=== PATIENT | female | born 1935 | race Caucasian/White ===

== ENCOUNTER 2016-08-02 13:50 | Inpatient (IN) | payer MEDICARE, OTHER ==
[2016-08-02] VITALS (12 sets, daily range): BP systolic 110–151; BP diastolic 49–80
[~2016-08-02] VITALS: Ht 157.5 cm; Wt 83.9 kg
[~2016-08-02 13:50] MED LIST: ACET-868 PO; ATOR20TA PO; BLOO-697 IN; CLON0.5T4 PO; CLOP75TA2 PO; DIVA125T2 PO; HYDR-3326 PO; INSU100V3 SQ; INSU100V7 SQ; MAG30ORA PO; MAGN400O6 PO; MULT1TAB11 PO; ONDA4TAB5 PO; PANT40TA2 PO; POLY17PO4 PO; RISP0.2515 PO; SENN8.6T22 PO; VALS160T24 PO; VENL150C2 PO; ZOLP5TAB2 PO
[2016-08-02] MEDS ORDERED: clonazePAM 1 MG TABLET PO ONE (14:30)
[2016-08-02] MEDS ORDERED: clonazePAM 1 MG TABLET ONE (14:37)
[2016-08-02 14:41] LABS: BASOPHILS % (AUTO) 0.2 % (0.0-2.0); EOSINOPHILS # (AUTO) 0.3 /CMM (0.0-0.7); EOSINOPHILS % (AUTO) 2.4 % (0.0-6.0); HEMATOCRIT 35 % (33-45); HEMOGLOBIN 11.3 g/dL (11.5-14.8); LYMPHOCYTES # (AUTO) 5.1 /CMM (0.8-4.8); LYMPHOCYTES % (AUTO) 41.9 % (20.0-44.0); MEAN CORPUSCULAR HEMOGLOBIN 29 PG (26.0-33.0); MEAN CORPUSCULAR HGB CONC 33 g/dl (31.0-36.0); MEAN CORPUSCULAR VOLUME 90 fL (82-100); MONOCYTES # (AUTO) 0.6 /CMM (0.1-1.30); MONOCYTES % (AUTO) 5.1 % (2.0-12.0); NEUTROPHILS # (AUTO) 6.1 /CMM (1.8-8.9); NEUTROPHILS % (AUTO) 50.4 % (43.0-81.0); PLATELET COUNT (AUTO) 360 /CMM (150-450); RDW COEFFICIENT OF VARIATION 13.1 (11.5-15.0); RED BLOOD CELL COUNT(AUTO) 3.86 MIL/uL (4.0-5.2); WHITE BLOOD COUNT (AUTO) 12.1 K/uL (4.3-11.0)
[2016-08-02 14:51] LABS: MAGNESIUM 2.3 mg/dL (1.8-2.4)
[2016-08-02 14:57] LABS: ALBUMIN 3.4 g/dL (3.4-5.0); BILIRUBIN,TOTAL 0.1 mg/dL (0.2-1.0); CALCIUM, SERUM 10.1 mg/dL (8.5-10.1); CREATININE 1.6 mg/dL (0.6-1.3); TOTAL PROTEIN, SERUM 7.5 g/dL (6.4-8.2)
[2016-08-02 14:58] LABS: INR 0.99 (0.87-1.13); POTASSIUM 7.2 mmol/L (3.5-5.1); PROTHROMBIN TIME 10.3 SECS (9.5-12.7)
--- NOTE | 2016-08-02 15:07 | NUR ---
SENT FROM [facility] FOR HIGH POTASSIUM AND RIGHT HEEL WOUND. NAD NOTED. PT CONFUSED, FAMILY AT BEDSIDE. PLACED IN GOWN AND MONITOR. PENDING MD FOR EVAL.
--- NOTE | 2016-08-02 15:22 | NUR ---
DR OATES ON THE PHONE WITH DR JUANA DE LA ROSA
--- NOTE | 2016-08-02 15:25 | NUR ---
PAGED PIPE RACKER BUDGET ACCOUNTANT
[2016-08-02] MEDS ORDERED: INSULIN REGULAR, HUMAN 100 UNIT/ML 10 ML VIAL IV ONE (15:30)
[2016-08-02] MEDS ORDERED: INSULIN REGULAR, HUMAN 100 UNIT/ML 10 ML VIAL ONE (15:30)
[2016-08-02] MEDS ORDERED: SODIUM POLYSTYRENE SULFONATE 15 G/60 ML BOTTLE ONE (15:30)
[2016-08-02] MEDS ORDERED: SODIUM POLYSTYRENE SULFONATE 15 G/60 ML BOTTLE PO ONE ×2 (15:30→17:00)
[2016-08-02] MEDS ORDERED: DEXTROSE 50%-WATER 50 ML DISP.SYRIN IV ONE (15:30)
[2016-08-02] MEDS ORDERED: ALBUTEROL FS 2.5 MG/3 ML VIAL.NEB NEB ONE (15:30)
[2016-08-02] MEDS ORDERED: DEXTROSE 50%-WATER 50 ML DISP.SYRIN ONE (15:34)
[2016-08-02] MEDS ORDERED: ALBUTEROL FS 2.5 MG/3 ML VIAL.NEB ONE (15:50)
--- NOTE | 2016-08-02 16:00 | NUR ---
REPAGED DYE MAKER LABORER BEAM HOUSE DR AMBER HOYT.
--- NOTE | 2016-08-02 16:14 | NUR ---
PATIENT ASSIGNED TO ICU 262, ADMITTING PHYSICIAN IS DR. ESTRELLA ARIAS
[2016-08-02] MEDS ORDERED: IV NS 0.9% 1,000 ML IV PRN (16:16)
--- NOTE | 2016-08-02 16:22 | NUR ---
PATIENT'S HEART INCREASED TO 155 BPM AFTER 15 MINUTES OF ALBUTEROL TREATMENT THEN DECREASED BACK TO 80 BPM. NOTIFIED AND ASSESSED PATIENT AT BESIDE. PER MD ORDER PATIENT WAS KEPT ON TREATMENT. WILL CONTINUE TO MONITOR PATIENT.
[2016-08-02] MEDS ORDERED: Z GUARD REMEDY 2 OZ OINT TP PRN (16:30)
[2016-08-02] MEDS ORDERED: ACETAMINOPHEN 325 MG TABLET PO PRN (16:30)
[2016-08-02] MEDS ORDERED: MAG HYDROX/AL HYDROX/SIMETH 30 ML UDC PO PRN (16:30)
[2016-08-02] MEDS ORDERED: ONDANSETRON HCL/PF 4 MG/2 ML VIAL IVP PRN ×2 (16:30)
[2016-08-02] MEDS ORDERED: ASCO500T10 PO (16:33)
[2016-08-02] MEDS ORDERED: LUBI8CAP PO (16:33)
[2016-08-02] MEDS ORDERED: INSU100V11 SQ ×2 (16:33)
[2016-08-02] MEDS ORDERED: MINE133E RC (16:33)
[2016-08-02] MEDS ORDERED: VALS160T2 PO (16:33)
[2016-08-02] MEDS ORDERED: VENL75CA62 PO (16:33)
[2016-08-02] MEDS ORDERED: ACET325T53 PO (16:38)
[2016-08-02] MEDS ORDERED: METO-295 PO (16:38)
[2016-08-02] MEDS ORDERED: DEXT1CAP3 PO (16:38)
[2016-08-02] MEDS ORDERED: VANCOMYCIN 1 GM in IV D5W 250 ML IV ONE (17:00)
[2016-08-02 17:15] LABS: APPEARANCE,URINE Turbid (CLEAR); BILIRUBIN,URINE Negative (NEGATIVE); BLOOD, URINE Trace-intact Ery/uL (NEGATIVE); COLOR,URINE Yellow (YELLOW); KETONES,URINE Negative (NEGATIVE); LEUKOCYTE ESTERASE ,URINE Small (NEGATIVE); NITRITE, URINE Negative (NEGATIVE); PH,URINE 5.5 (5.0-8.0); PROTEIN,URINE 30 mg/dl (NEGATIVE); UROBILINOGEN,URINE 0.2 EU/dL (0.2)
[2016-08-02 17:16] LABS: UGLUCOSE 100 MG/DL mg/dL (NEGATIVE)
[2016-08-02 17:21] LABS: ADD URINE CULTURE YES; BACTERIA,URINE Few /HPF (None Seen); SQUAMOUS EPITHELIAL CELL,UR Few /HPF (None Seen); WBC,URINE 81-100 /HPF (0-3)
[2016-08-02] MEDS ORDERED: VANCOMYCIN 1 GM in IV D5W 250 ML IV SCH (17:30)
[2016-08-02] MEDS ORDERED: FEE PK DOSING 1 MIN EA MC ONE (17:49)
[2016-08-02 17:55] LABS: LACTIC ACID 2.3 mmol/L (0.4-2.0)
[2016-08-02] MEDS ORDERED: IV SET PRIMARY PUMP SET 1 EA INFUS.SET MC ONE ×3 (18:02→21:03)
[2016-08-02] MEDS: BLOOD SUGAR DIAGNOSTIC 1 EACH STRIP IN SCH ×2 (18:14→23:19)
--- NOTE | 2016-08-02 18:17 | NUR ---
ICU/RN - Notes Dr Hinojosa notified regarding pt's Lactic acid 2.3, with no new orders for fluids but to maintain IV NS @ 75ml/hr as ordered. Pt had an episode of emesis x1 of light brown color, likely due to Kayexelate given previously. Administered Zofran IVP as ordered, no aspiration noted. Pt noted to be diaphoretic with HR 120's. Dr Hinojosa made aware of assessment and pt unable to take dose of Kayexelate at this time. Per MD, do repeat BMP. Will carry out. Family at bedside.
[2016-08-02] MEDS: INSULIN REGULAR, HUMAN 100 UNIT/ML 3 ML VIAL SQ PRN ×2 (18:26→23:20)
[2016-08-02] MEDS ORDERED: METOCLOPRAMIDE HCL 10 MG TABLET PO PRN (18:30)
[2016-08-02] MEDS ORDERED: HYDROCODONE/APAP 5/325MG 1 EACH TABLET PO PRN (18:30)
[2016-08-02] MEDS ORDERED: PIPERACILLIN /TAZOBACTAM 2.25 G in IV D5W 50 ML IV SCH (18:55)
[2016-08-02 19:26] LABS: CALCIUM, SERUM 9.8 mg/dL (8.5-10.1); CREATININE 1.8 mg/dL (0.6-1.3)
[2016-08-02 19:31] LABS: POTASSIUM 6.8 mmol/L (3.5-5.1)
--- NOTE | 2016-08-02 19:40 | NUR ---
PICKER AND SORTER LOAD AND UNLOAD NOTES CALL RECEIVED FROM PT'S PRIMARY MD, DR MONTEMAYOR FROM [facility], REQUESTING STATUS UPDATES ON THE PATIENT AND ALSO REQUESTING TO GET A CALLBACK FROM THE ATTENDING MD IN THE MORNING. DR MONTEMAYOR'S CELLPHONE #: [phone].
[2016-08-02] MEDS ORDERED: SECONDARY IV SET 1 EA INFUS.SET MC ONE (19:50)
--- NOTE | 2016-08-02 20:00 | NUR ---
SALES MARKETING NOTES RECEIVED PT IN BED, A/O X1 WITH CONFUSION AND YELLING, VIETNAMESE SPEAKING ONLY. ON ROOM AIR, KT WELL. TELE READS ST AT 110 BPM. NO ACUTE DISTRESS OR PAIN NOTED. GALEANO CATH IN PLACE, DRAINING TO SLIGHTLY CLOUDY YELLOW URINE. RIGHT AND LEFT FOREARM 20G IV, RUNNING NS AT 75 ML/HR. RIGHT HEEL WOUND WITH ESCHAR, DRESSING INTACT. HOB ELEVATED, SIDE RAILS X3. CALL LIGHT WITHIN REACH.
[2016-08-02] MEDS ORDERED: MEROPENEM 1 G in IV NS 0.9% 100 ML IV SCH ×4 (21:00)
[2016-08-02] MEDS ORDERED: IV NS 0.9% 500 ML IV ONE (21:00)
[2016-08-02] MEDS ORDERED: SODIUM POLYSTYRENE SULFONATE 15 G/60 ML BOTTLE RC ONE (21:00)
--- NOTE | 2016-08-02 21:00 | NUR ---
LEAFLET DISTRIBUTOR NOTES PT VOMITED INITIAL DOSE OF KAYEXALATE. CONTACTED DNP FRANCY STRICKLAND AND MADE AWARE. NEW ORDER FOR KAYEXALATE ENEMA GIVEN. ALSO MADE AWARE OF LACTIC ACID INCREASE TO 2.8 AND LATEST POTASSIUM OF 6.8. NEW ORDER FOR NS 500 ML BOLUS GIVEN. PT'S DAUGHTER REQUESTING FOOD FOR PATIENT SHE STATES PT HAS NO SWALLOWING ISSUES AND WAS ON MECHANICAL SOFT DIET AT [facility]. ORDER RECEIVED FOR MECHANICAL SOFT RENAL/CONSISTENT CARB DIET WITH LOW POTASSIUM.
[2016-08-02] MEDS: PIPERACILLIN /TAZOBACTAM 2.25 G in IV D5W 50 ML IV SCH (21:10)
[2016-08-02] MEDS: ATORVASTATIN 10 MG TABLET PO SCH ×2 (21:25→22:00)
[2016-08-02] MEDS ORDERED: BLOOD SUGAR DIAGNOSTIC 1 EACH STRIP IN SCH (22:00)
[2016-08-02] MEDS: INSULIN DETEMIR 100 UNIT/ML CARTRIDGE SQ SCH (23:22)
--- NOTE | 2016-08-02 23:30 | NUR ---
BILINGUAL TEACHER ASSISTANT NOTES PT RECEIVED KAYEXALATE ENEMA AND HELD IT IN FOR APPROX 45 MIN. AFTERWARDS, HAD A SMALL/MODERATE BM WHICH CONSISTED MOSTLY OF KAYEXALATE.
[2016-08-03] VITALS (44 sets, daily range): BP systolic 97–158; BP diastolic 37–111
[2016-08-03] MEDS: PIPERACILLIN /TAZOBACTAM 2.25 G in IV D5W 50 ML IV SCH ×4 (01:01→20:40)
--- NOTE | 2016-08-03 03:19 | NUR ---
EXTRUSION TECHNICIAN NOTES PT IS ASLEEP WITH INTERMITTENT SLEEP PATTERN INTERRUPTED WITH OCCASIONAL SCREAMING AND THEN FALLING BACK ASLEEP. PT RECEIVED BED BATH AND LINEN CHANGE THROUGHOUT NIGHT.
[2016-08-03 05:16] LABS: BASOPHILS % (AUTO) 0.3 % (0.0-2.0); EOSINOPHILS # (AUTO) 0.1 /CMM (0.0-0.7); HEMATOCRIT 30 % (33-45); HEMOGLOBIN 9.8 g/dL (11.5-14.8); LYMPHOCYTES % (AUTO) 23.7 % (20.0-44.0); MEAN CORPUSCULAR HEMOGLOBIN 30 PG (26.0-33.0); MEAN CORPUSCULAR HGB CONC 33 g/dl (31.0-36.0); MEAN CORPUSCULAR VOLUME 90 fL (82-100); NEUTROPHILS # (AUTO) 8.5 /CMM (1.8-8.9); PLATELET COUNT (AUTO) 294 /CMM (150-450); RDW COEFFICIENT OF VARIATION 14.3 (11.5-15.0); RED BLOOD CELL COUNT(AUTO) 3.29 MIL/uL (4.0-5.2); RETICULOCYTE COUNT 1.3 % (0.6-2.5); WHITE BLOOD COUNT (AUTO) 12.6 K/uL (4.3-11.0)
[2016-08-03 05:47] LABS: PROTHROMBIN TIME 10.7 SECS (9.5-12.7)
[2016-08-03 05:54] LABS: ALBUMIN 3.1 g/dL (3.4-5.0); BILIRUBIN,DIRECT 0.1 mg/dL (0.0-0.2); BILIRUBIN,TOTAL 0.2 mg/dL (0.2-1.0); CALCIUM, SERUM 9.1 mg/dL (8.5-10.1); CREATININE 1.5 mg/dL (0.6-1.3); MAGNESIUM 2.1 mg/dL (1.8-2.4); THYROID STIMULATING HORMONE 1.789 uIU/mL (0.358-3.74); TOTAL PROTEIN, SERUM 6.8 g/dL (6.4-8.2)
[2016-08-03 06:06] LABS: POTASSIUM 7.5 mmol/L (3.5-5.1)
[2016-08-03] MEDS: SENNOSIDES 8.6 MG TABLET PO SCH ×2 (06:23→17:58)
[2016-08-03] MEDS: BLOOD SUGAR DIAGNOSTIC 1 EACH STRIP IN SCH ×3 (06:23→18:07)
--- NOTE | 2016-08-03 06:29 | NUR ---
HEAD OF INTEGRATED MEDIA NOTES PT REFUSED SENOKOT DOSE FOR 0700. PLACES PILLS IN MOUTH THEN SPITS THEM OUT.
[2016-08-03] MEDS ORDERED: SODIUM POLYSTYRENE SULFONATE 15 G/60 ML BOTTLE RC ONE (07:30)
--- NOTE | 2016-08-03 08:03 | NUR ---
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 PT COMBATIVE AT TIMES. RECOMMENDATIONS MADE FOR WOUND CARE AND SKIN PROTECTION. DISCUSSED WITH NURSING STAFF. FIRST STEP MATTRESS ORDERED. LEROY SCORE IS 12. DPM CONSULT MADE BY MD PER NURSING STAFF. WILL SEE PRN. AMBROSIO IN AGREEMENT WITH PLAN OF CARE. Addendum: 08/03/16 at 0806 by ADRIENNE ZULUAGA WNDNU Amended: Links added.
[2016-08-03] MEDS ORDERED: MAGNESIUM HYDROXIDE 30 ML UDC PO SCH (09:00)
[2016-08-03] MEDS: INSULIN DETEMIR 100 UNIT/ML CARTRIDGE SQ SCH ×2 (09:00→22:59)
[2016-08-03] MEDS ORDERED: ALBUTEROL FS 2.5 MG/3 ML VIAL.NEB NEB STA (09:35)
[2016-08-03] MEDS ORDERED: SODIUM BICARBONATE SYR 50 MEQ/50 ML DISP.SYRIN ONE (09:44)
[2016-08-03] MEDS: DIVALPROEX SODIUM 125 MG TABLET.DR PO SCH ×3 (09:59→17:58)
[2016-08-03] MEDS: CLOPIDOGREL BISULFATE 75 MG TABLET PO SCH (09:59)
[2016-08-03] MEDS: VENLAFAXINE XR 75 MG CAP.SR.24H PO SCH (09:59)
[2016-08-03] MEDS: ASCORBIC ACID 500 MG TABLET PO SCH (09:59)
[2016-08-03] MEDS: clonazePAM 0.5 MG TABLET PO SCH ×2 (09:59→17:58)
[2016-08-03] MEDS ORDERED: SODIUM BICARBONATE SYR 50 MEQ/50 ML DISP.SYRIN IV ONE ×2 (10:00→17:30)
[2016-08-03] MEDS ORDERED: DEXTROSE 50%-WATER 50 ML DISP.SYRIN IVP ONE ×2 (10:00→17:30)
[2016-08-03] MEDS ORDERED: INSULIN REGULAR, HUMAN 100 UNIT/ML 3 ML VIAL IV ONE ×2 (10:00→17:30)
[2016-08-03] MEDS: MULTIVIT, IRON, MIN NO. 8, FA 1 TAB TABLET PO SCH (10:00)
[2016-08-03] MEDS: CADEXOMER IODINE 40 GM TUBE TP SCH (10:02)
[2016-08-03] MEDS ORDERED: SECONDARY IV SET 1 EA INFUS.SET MC ONE ×2 (13:57→18:02)
[2016-08-03] MEDS: SOD FERRIC GLUC 125 MG in IV NS 0.9% 100 ML IV SCH (14:01)
--- NOTE | 2016-08-03 16:16 | NUR ---
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 Addendum: 08/03/16 at 1616 by RAHEL CRANE RN Amended: Links added.
[2016-08-03] MEDS: SODIUM POLYSTYRENE SULFONATE 15 G/60 ML BOTTLE PO ONE ×2 (17:30→18:08)
[2016-08-03] MEDS ORDERED: Calcium Gluconate 1GM/10ML 4.65 MEQ in IV D5W 50 ML IV ONE (17:30)
[2016-08-03 17:48] LABS: CALCIUM, SERUM 9.3 mg/dL (8.5-10.1); CREATININE 1.3 mg/dL (0.6-1.3)
[2016-08-03 17:55] LABS: POTASSIUM 6.4 mmol/L (3.5-5.1)
[2016-08-03] MEDS ORDERED: ALBUTEROL FS 2.5 MG/0.5 ML VIAL.NEB NEB SCH ×2 (18:00→18:15)
--- NOTE | 2016-08-03 18:43 | NUR ---
1800 VANCOMYCIN WILL BE GIVEN LATE. THE ORDER IS FOR 1.25 GM VANCO AND IN THE CASSETTE IS 1GM VANCO. CALLED PHARMACY, THEY STATE THEY WILL MIX IT AND BRING IT UP.
--- NOTE | 2016-08-03 19:12 | NUR ---
WRAPPER STEMMER OPERATOR PT IN BED AWAKE ALERT FAMILY AT BEDSIDE, ALL PT NEEDS MEET INTERVENTION INITIATED FOR ELEVATED K+ SEE MED CHART AND ORDERS, BMP SCHEDULED FOR 08/03/2016 @2200 FOR LABS AND CRITICAL LABS WILL BE REPORTED RACHEL MCDOWELL PM NURSE AWARE. NO CHANGES IN PT CONDITION FROM BASELINE ADVISED RN TO RECHECK BLOOD SUGAR IN 1HR.
[2016-08-03] MEDS: VANCOMYCIN 1.25 GM in IV D5W 500 ML IV SCH (19:46)
--- NOTE | 2016-08-03 20:00 | NUR ---
SPECIAL LIBRARIAN NOTES RECEIVED PT IN BED, A/O X1 WITH CONFUSION AND YELLING, WELSH SPEAKING ONLY. ON ROOM AIR, KT WELL. TELE READS SR AT 87 BPM. NO ACUTE DISTRESS OR PAIN NOTED. GALEANO CATH IN PLACE, DRAINING TO SLIGHTLY CLOUDY YELLOW URINE. RIGHT AND LEFT FOREARM 20G IV, RUNNING NS AT 100 ML/HR. RIGHT HEEL WOUND WITH ESCHAR, DRESSING INTACT. HOB ELEVATED, SIDE RAILS X3. CALL LIGHT WITHIN REACH. FAMILY AT BEDSIDE.
[2016-08-03] MEDS ORDERED: ALBUTEROL FS 2.5 MG/3 ML VIAL.NEB NEB ONE (20:30)
--- NOTE | 2016-08-03 21:00 | NUR ---
WEAVER NEEDLE LOOM NOTES SPOKE TO HOME SPECIALIST ABOUT 24 HR URINE COLLECTION. MADE AWARE THAT URINE WAS NOT PLACED ON ICE AND THEREFORE WILL NEED TO START A NEW 24 HR COLLECTION. WILL BEGIN COLLECTION ON 08/04/16 AT 0500.
[2016-08-03] MEDS: FLUDROCORTISONE 0.1 MG TABLET PO SCH (21:08)
[2016-08-03] MEDS: ZOLPIDEM TARTRATE 5 MG TABLET PO PRN (21:09)
[2016-08-03] MEDS: ATORVASTATIN 10 MG TABLET PO SCH (21:10)
[2016-08-03 22:04] LABS: CALCIUM, SERUM 8.9 mg/dL (8.5-10.1); CREATININE 1.2 mg/dL (0.6-1.3)
[2016-08-04] VITALS (23 sets, daily range): BP systolic 111–168; BP diastolic 44–96
[2016-08-04] MEDS: BLOOD SUGAR DIAGNOSTIC 1 EACH STRIP IN SCH ×5 (00:17→23:20)
[2016-08-04] MEDS: INSULIN REGULAR, HUMAN 100 UNIT/ML 3 ML VIAL SQ PRN ×3 (00:18→23:26)
[2016-08-04] MEDS: PIPERACILLIN /TAZOBACTAM 2.25 G in IV D5W 50 ML IV SCH ×3 (01:00→13:39)
[2016-08-04] MEDS: IV NS 0.9% 1,000 ML IV PRN ×2 (03:39→19:30)
[2016-08-04 05:27] LABS: BASOPHILS % (AUTO) 0.1 % (0.0-2.0); EOSINOPHILS # (AUTO) 0.2 /CMM (0.0-0.7); EOSINOPHILS % (AUTO) 1.9 % (0.0-6.0); HEMATOCRIT 26 % (33-45); HEMOGLOBIN 8.7 g/dL (11.5-14.8); LYMPHOCYTES # (AUTO) 3.2 /CMM (0.8-4.8); LYMPHOCYTES % (AUTO) 28.4 % (20.0-44.0); MEAN CORPUSCULAR HEMOGLOBIN 30 PG (26.0-33.0); MEAN CORPUSCULAR HGB CONC 33 g/dl (31.0-36.0); MEAN CORPUSCULAR VOLUME 90 fL (82-100); MONOCYTES # (AUTO) 0.9 /CMM (0.1-1.30); MONOCYTES % (AUTO) 8.3 % (2.0-12.0); NEUTROPHILS # (AUTO) 6.8 /CMM (1.8-8.9); NEUTROPHILS % (AUTO) 61.3 % (43.0-81.0); PLATELET COUNT (AUTO) 206 /CMM (150-450); RDW COEFFICIENT OF VARIATION 13.7 (11.5-15.0); RED BLOOD CELL COUNT(AUTO) 2.93 MIL/uL (4.0-5.2); WHITE BLOOD COUNT (AUTO) 11.1 K/uL (4.3-11.0)
[2016-08-04 05:35] LABS: CALCIUM, SERUM 8.8 mg/dL (8.5-10.1); CREATININE 1.1 mg/dL (0.6-1.3); MAGNESIUM 1.7 mg/dL (1.8-2.4); PHOSPHORUS 2.9 mg/dL (2.5-4.9); POTASSIUM 5.6 mmol/L (3.5-5.1)
--- NOTE | 2016-08-04 07:34 | NUR ---
EYEWEAR MANUFACTURING TECH RECEIVED PATIENT FROM THE PREVIOUS SHIFT. PATIENT IN BED. MODERATELY AGITATED AND RESTLESS. PERSISTENT YELLING WITHOUT PURPOSE NOTED. SINUS RHYTHM ON MONITOR. NORMAL BP. LEFT FORE ARM SKIN TEAR PHOTOGRAPHED AND FILED. IV FLUIDS RUNNING. REFUSES ANY PO INTAKE AT THIS TIME. HOB ELEVATED. FAMILY AWARE. WILL CONTINUE TO MONITOR AND PROVIDE CARE.
[2016-08-04] MEDS: INSULIN DETEMIR 100 UNIT/ML CARTRIDGE SQ SCH ×3 (08:44→23:34)
[2016-08-04] MEDS: CADEXOMER IODINE 40 GM TUBE TP SCH (08:44)
[2016-08-04] MEDS: clonazePAM 0.5 MG TABLET PO SCH ×2 (09:00→16:26)
[2016-08-04] MEDS: ASCORBIC ACID 500 MG TABLET PO SCH (09:46)
[2016-08-04] MEDS: VENLAFAXINE XR 75 MG CAP.SR.24H PO SCH (09:46)
[2016-08-04] MEDS: DIVALPROEX SODIUM 125 MG TABLET.DR PO SCH ×3 (09:46→16:27)
[2016-08-04] MEDS: MULTIVIT, IRON, MIN NO. 8, FA 1 TAB TABLET PO SCH (09:46)
[2016-08-04] MEDS: SENNOSIDES 8.6 MG TABLET PO SCH ×2 (09:46→16:27)
[2016-08-04] MEDS: FLUDROCORTISONE 0.1 MG TABLET PO SCH (09:46)
[2016-08-04] MEDS: CLOPIDOGREL BISULFATE 75 MG TABLET PO SCH (09:46)
[2016-08-04] MEDS ORDERED: SODIUM POLYSTYRENE SULFONATE 15 G/60 ML BOTTLE PO ONE (10:00)
[2016-08-04] MEDS ORDERED: SECONDARY IV SET 1 EA INFUS.SET MC ONE (10:40)
[2016-08-04] MEDS: Magnesium 1GM/D5W 100ML PREMIX 100 ML IV SCH ×2 (10:47→11:39)
--- NOTE | 2016-08-04 10:58 | NUR ---
DIE MAKER ELECTRONIC BUTCHER CHICKEN AND FISH ORDERED KAYEXALATE BY MOUTH FOR K LEVEL 5.6. RN INFORMED THE BUTCHER CHICKEN AND FISH THAT PATIENT'S PO INTAKE IS POOR AND UNABLE TO ADMINISTER THE FULL DOSE. BUTCHER CHICKEN AND FISH INFORMED THE RN TO ADMINISTER THE MEDICATION VIA AN ENEMA. RN INFORMED THE BUTCHER CHICKEN AND FISH THAT SHE HAD POOR RECTAL RETENTION OF THE ENEMA YESTERDAY AND CAUSED SEVERE AGITATION. BUTCHER CHICKEN AND FISH INFORMED THE RN TO ATTEMPT TO ADMINISTER THE MEDICATION BY MOUTH REGARDLESS. BUTCHER CHICKEN AND FISH ALSO INFORMED THAT SHE DOES NOT NEED ANY FOLLOW UP POTASSIUM LAB ORDERS FOR TODAY NOR INTRAVENOUS AGENTS TO TREAT HYPERKALEMIA. RN ATTEMPTED TO ADMINISTER THE MEDICATION BY MOUTH HOWEVER PATIENT ONLY TOOK ONE BOTTLE OF KAYEXALATE AT THIS TIME. RN CALLED THE FAMILY AND INFORMED ABOUT THE EVENT. PER DAUGHTER LUIGI, ANOTHER DAUGHTER OF THE PATIENT WILL BE HERE FOR LUNCH TO FEED THE PATIENT. PER LUGII PATIENT WOULD MOST LIKELY TAKE THE MEDICATION BY MOUTH IF ADMINISTERED WITH FAMILY'S ASSISTANCE. AWAITING FAMILY TO ARRIVE TO ADMINISTER THE MEDICATION WITH FAMILY'S ASSISTANCE. REST OF THE MEDICATION SAFELY PLACED ON PATIENT'S CASSETTE IN THE MEDICATION ROOM.
--- NOTE | 2016-08-04 13:21 | NUR ---
LATEX FASHIONS DESIGNER PATIENT DAUGHTER AT BEDSIDE. FAMILY HELPED THE RN FEED THE PATIENT. PATIENT TOOK ALL OF HER MEDICATIONS INCLUDING THE KAYEXALATE. NO FOLLOW POTASSIUM LEVEL FOR TODAY PER STATION ENGINEER.
[2016-08-04] MEDS: SOD FERRIC GLUC 125 MG in IV NS 0.9% 100 ML IV SCH (13:58)
--- NOTE | 2016-08-04 14:12 | NUR ---
REGIONAL ENVIRONMENTAL MANAGER PATIENT REFUSES BILATERAL LOWER EXTREMITY ARTERIAL DOPPLER AT THIS TIME. FAMILY IS AT BEDSIDE AND AWARE. PODIATRY SERVICES MADE AWARE.
[2016-08-04] MEDS: LACTOBACILLUS RHAMNOSUS GG 1 EACH CAP.SPRINK PO SCH (16:28)
[2016-08-04] MEDS ORDERED: LEVOFLOXACIN (500MG) 500 MG TABLET PO SCH (17:30)
[2016-08-04] MEDS: VANCOMYCIN 1.25 GM in IV D5W 500 ML IV SCH (17:45)
--- NOTE | 2016-08-04 18:50 | NUR ---
BOTTLED BEVERAGE INSPECTOR PATIENT IN BED. RESTING COMFORTABLY. NO DISTRESS. FAMILY AT BEDSIDE FEEDING THE PATIENT. WILL CONTINUE TO MONITOR AND PROVIDE CARE.
[2016-08-04] MEDS: LEVOFLOXACIN 500 MG /D5W 100ML 500 MG in PREMIX 1 EA IV SCH (20:29)
[2016-08-04] MEDS ORDERED: IV SET PRIMARY PUMP SET 1 EA INFUS.SET MC ONE (20:36)
--- NOTE | 2016-08-04 21:33 | NUR ---
DRIVEWAY SEALER INITIAL NOTE RECEIVED PT FROM ICU WITH FAMILY AT BEDSIDE. PT CAYMAN ISLANDER SPEAKING AND CONFUSED AT TIMES. ON 2L OF O2 VIA NC AND SATING WELL. GALEANO CATHETER IN PLACE AND DRAINING CLEAR YELLOW URINE BY GRAVITY. IV L FA CLEAN AND PATENT WITH FLUIDS INFUSING AND WELL TOLERATED. ALL SAFETY MEASURES IN PLACE. CALL LIGHT WITHIN EASY REACH AT ALL TIMES. WILL CONTINUE TO MONITOR.
--- NOTE | 2016-08-04 21:40 | NUR ---
ASSEMBLER GOLD FRAME - REC'D PT. IN RM#[id number], YELLING ALOUD & SPITTING ON RN WHEN ATTEMPTING TO DO ASSESS - MENT. ASSESSMENT DOCUMENTED. PT.IS ON O2/2.5L/NC. VSS. GALEANO CATH TO GRAVITY-24 HR.URINE CREAT/BUN/NA+ & EOS ARE IN PROGRESS. 24 HR. URINE TO BE FINISHED AT 5 AM. TX'D PT. TO RM #[id number]. PT'S 2 DAUGHTERS ARE AT BEDSIDE. FAMILY IS VERY INVOLVED W/PT'S CARE. PT.HAD VERY LARGE STOOL. 2 RN BEDBATH/VYMN-[id number]-GLELI & SKIN CARE ADM. CONT. POC.
[2016-08-04] MEDS: ZOLPIDEM TARTRATE 5 MG TABLET PO PRN (21:53)
[2016-08-04] MEDS: ATORVASTATIN 10 MG TABLET PO SCH (21:54)
[2016-08-04] MEDS: ACETAMINOPHEN 325 MG TABLET PO PRN (21:57)
[2016-08-05] VITALS: BP_SYST 142; BP_SYST 160; BP_DIAS 40; BP_DIAS 77
[2016-08-05] MEDS: HYDROCODONE/APAP 5/325MG 1 EACH TABLET PO PRN ×2 (02:50→20:14)
[2016-08-05 04:00] VITALS: BP 136/71
[2016-08-05] MEDS: BLOOD SUGAR DIAGNOSTIC 1 EACH STRIP IN SCH ×3 (06:14→17:08)
[2016-08-05] MEDS: SENNOSIDES 8.6 MG TABLET PO SCH ×3 (06:15→18:10)
[2016-08-05] MEDS: DEXTROSE 50%-WATER 50 ML DISP.SYRIN IV PRN (06:39)
--- NOTE | 2016-08-05 07:10 | NUR ---
RN INITIAL NOTES RECEIVED PT IN BED, ASLEEP, EASY TO AROUSE, PT IS CONFUSED AND COMBATIVE, PT IS ON PT IS ON 2L NC,SATING WELL, NO RESP. DISTRESS OR SOB NOTED AT THIS TIME, PT IS ON TELE MONITOR SHOWING SR @ 81 BPM, NO C/O OF PAIN OR DISTRESS NOTED, PT HAS F/C DRAINING WELL TO GRAVITY, PT HAS R WRIST, RUNNING NS @ 75ML/HR, C/D/I/PATENT, FLUSHING WELL, NO INFILTRATION/ INFECTION NOTED AT THIS TIME, PT IS NOTED WITH SKIN ISSUES, ALL SAFETY MEASURES IN PLACE AT ALL TIMES, CALL LIGHT WITHIN EASY REACH, WILL MONITOR PT CLOSELY
--- NOTE | 2016-08-05 07:21 | NUR ---
STUDENT MINISTRIES DIRECTOR CLOSING NOTE PT REMAINED STABLE DURING SHIFT WITH EPISODES OF YELLING AND CONFUSION. IV SITE INTACT AND FLUIDS WELL TOLERATED. GALEANO CATHETER IN PLACE. CALL LIGHT WITHIN REACH. WILL ENDORSE TO NEXT SHIFT FOR ZUHAIR.
[2016-08-05 07:35] LABS: CALCIUM, SERUM 8.8 mg/dL (8.5-10.1); POTASSIUM 3.3 mmol/L (3.5-5.1)
[2016-08-05 08:00] VITALS: BP 160/46
[2016-08-05] MEDS: DIVALPROEX SODIUM 125 MG TABLET.DR PO SCH ×3 (09:00→18:09)
[2016-08-05] MEDS: INSULIN DETEMIR 100 UNIT/ML CARTRIDGE SQ SCH ×2 (09:00→22:53)
[2016-08-05] MEDS: VENLAFAXINE XR 75 MG CAP.SR.24H PO SCH (09:00)
[2016-08-05] MEDS: CLOPIDOGREL BISULFATE 75 MG TABLET PO SCH (09:00)
[2016-08-05] MEDS: clonazePAM 0.5 MG TABLET PO SCH ×2 (09:00→18:10)
[2016-08-05] MEDS: ASCORBIC ACID 500 MG TABLET PO SCH (09:00)
[2016-08-05] MEDS: LACTOBACILLUS RHAMNOSUS GG 1 EACH CAP.SPRINK PO SCH ×2 (09:00→18:10)
[2016-08-05] MEDS: FLUDROCORTISONE 0.1 MG TABLET PO SCH (09:00)
[2016-08-05] MEDS: MULTIVIT, IRON, MIN NO. 8, FA 1 TAB TABLET PO SCH (09:00)
[2016-08-05] MEDS: CADEXOMER IODINE 40 GM TUBE TP SCH (09:25)
[2016-08-05] MEDS ORDERED: SECONDARY IV SET 1 EA INFUS.SET MC ONE ×2 (11:46→14:25)
[2016-08-05 12:00] VITALS: BP 140/56
[2016-08-05] MEDS ORDERED: POTASSIUM CHLORIDE 20 MEQ TAB.PRT.SR PO ONE (12:00)
[2016-08-05] MEDS: IV NS 0.9% 1,000 ML IV PRN (12:26)
[2016-08-05] MEDS: POTASSIUM CL. PREMIX PERIPHER. 50 ML IV SCH ×2 (12:26→15:49)
[2016-08-05] MEDS ORDERED: IV SET PRIMARY PUMP SET 1 EA INFUS.SET MC ONE (14:13)
[2016-08-05] MEDS: SOD FERRIC GLUC 125 MG in IV NS 0.9% 100 ML IV SCH (14:32)
[2016-08-05 16:00] VITALS: BP 158/50
[2016-08-05] MEDS: VANCOMYCIN 1.25 GM in IV D5W 500 ML IV SCH (16:38)
[2016-08-05] MEDS: INSULIN REGULAR, HUMAN 100 UNIT/ML 3 ML VIAL SQ PRN (18:11)
--- NOTE | 2016-08-05 18:31 | NUR ---
RN CLOSING NOTES PT REMAINED STABLE DURING SHIFT, ALL MEDICATIONS GIVEN, ALL MD ORDERS CARRIED OUT, ALL TREATMENTS COMPLETED, IV C/D/I/PATENT, RUNNING FLUIDS ORDERED, FAMILY AT BEDSIDE, ALL SAFETY MEASURES IN PLACE AT ALL TIMES, CALL LIGHT WITHIN EASY REACH, WILL GIVE REPORT TO PM RN FOR ZUHAIR
[2016-08-05] MEDS: LEVOFLOXACIN 500 MG /D5W 100ML 500 MG in PREMIX 1 EA IV SCH (19:49)
[2016-08-05 20:00] VITALS: BP_SYST 157; BP_SYST 177; BP_DIAS 60; BP_DIAS 82
[2016-08-05] MEDS: ZOLPIDEM TARTRATE 5 MG TABLET PO PRN (20:55)
--- NOTE | 2016-08-05 21:00 | NUR ---
TILE CONDUIT LAYER DF RECEIVED PT TO ROOM#105 PT WITH MULTIPLE FAMILY MEMBERS AT BEDSIDE. PT WITH HX OF DEMENTIA. PT DISORIENTED.ORIENTED PER PERSON PER FAMILY.PT IS KOSOVAN SPEAKING.TRANSLATION PROVIDED BY FAMILY MEMBERS. PT FOLLOWS SIMPLE COMMANDS. PT WITH UNCONTROLLED YELLING/SCREAMING (THIS IS PT,S BASELINE BEHAVIOR PER FAMILY). PT WILL FOLLOW COMMANDS AND SAY HI AND SPEAK WITH FAMILY MEMBERS AND PT YELLS/SCREAMS UNABLE TO STOP. PER FAMILY PT C/O PAIN TO RIGHT HEEL WOUND I MEDICATED PT WITH NORCO 1 TAB. PT C/O INSOMNIA UNABLE TO RELAX/SLEEP. PT MEDICATED WITH AMBIEN 5 MG PO. PT ON N/C AT 2LPM VSS. NAD NOTED.
[2016-08-05] MEDS: ATORVASTATIN 10 MG TABLET PO SCH (22:53)
--- NOTE | 2016-08-06 00:05 | NUR ---
RN DF PT ACCU CHECK AT 2250 OF 240. I COVERED PT WITH LEVIMIR 25 UNITS AND REGULAR INSULIN 4 UNTS PER RISS. PT AM CARE GIVEN BY LEIDY MAYNARD. I WILL RECHECK PT,S GLUCOSE IN 6 HOURS/PRN.
[2016-08-06] MEDS: BLOOD SUGAR DIAGNOSTIC 1 EACH STRIP IN SCH ×4 (00:08→18:25)
[2016-08-06] MEDS: INSULIN REGULAR, HUMAN 100 UNIT/ML 3 ML VIAL SQ PRN ×4 (00:09→18:33)
[2016-08-06 04:00] VITALS: BP_SYST 136; BP_SYST 166; BP_DIAS 57
[2016-08-06] MEDS: SENNOSIDES 8.6 MG TABLET PO SCH ×2 (06:12→14:38)
[2016-08-06 08:00] VITALS: BP 147/53
--- NOTE | 2016-08-06 08:00 | NUR ---
MS RN NOTE PATIENT IN BED, VERY RESTLESS, TRYING TO REMOVE O2 VIA NC WITH F\C TO GRAVITY WITH YELLOW COLOR URINE, PATIENT REFUSED TO HAVE BREAKFAST EXPLAINED OF RISK AND BENEFITS TO EAT STILL REFUSING , OFFERED X3 , NEW HL ON LT FOOT INSERTED WITH GOOD BLOOD RETURN NO COMPLICATION NOTED , BED IN LOWEST AND LOCKED POSITION CALL LIGHT WITHIN REACH WILL F\U
[2016-08-06 08:23] LABS: CALCIUM, SERUM 8.9 mg/dL (8.5-10.1); CREATININE 0.9 mg/dL (0.6-1.3); POTASSIUM 3.7 mmol/L (3.5-5.1)
[2016-08-06] MEDS: INSULIN DETEMIR 100 UNIT/ML CARTRIDGE SQ SCH ×2 (09:00→21:47)
[2016-08-06 10:00] VITALS: BP 147/53
--- NOTE | 2016-08-06 10:00 | NUR ---
ms rn note per dr vadim jaimes to inert hl on foot , new hl will be inserted on lt foot
[2016-08-06] MEDS: ASCORBIC ACID 500 MG TABLET PO SCH (10:11)
[2016-08-06] MEDS: MULTIVIT, IRON, MIN NO. 8, FA 1 TAB TABLET PO SCH (10:11)
[2016-08-06] MEDS: VENLAFAXINE XR 75 MG CAP.SR.24H PO SCH (10:11)
[2016-08-06] MEDS: LACTOBACILLUS RHAMNOSUS GG 1 EACH CAP.SPRINK PO SCH ×2 (10:11→18:24)
[2016-08-06] MEDS: clonazePAM 0.5 MG TABLET PO SCH ×2 (10:11→18:24)
[2016-08-06] MEDS: DIVALPROEX SODIUM 125 MG TABLET.DR PO SCH ×3 (10:12→17:00)
[2016-08-06] MEDS: CLOPIDOGREL BISULFATE 75 MG TABLET PO SCH (10:12)
[2016-08-06] MEDS: VANCOMYCIN 1.25 GM in IV D5W 500 ML IV SCH (10:12)
[2016-08-06] MEDS: FLUDROCORTISONE 0.1 MG TABLET PO SCH (10:13)
[2016-08-06] MEDS: CADEXOMER IODINE 40 GM TUBE TP SCH (10:13)
[2016-08-06] MEDS ORDERED: SECONDARY IV SET 1 EA INFUS.SET MC ONE (10:14)
--- NOTE | 2016-08-06 12:00 | NUR ---
MS RN NOTE ENDORSED CARE TORN FROM [facility]
[2016-08-06] MEDS: SOD FERRIC GLUC 125 MG in IV NS 0.9% 100 ML IV SCH (15:37)
[2016-08-06 16:00] VITALS: BP 138/43
[2016-08-06 16:39] VITALS: BP 138/43
--- NOTE | 2016-08-06 18:26 | NUR ---
PT [facility]
[2016-08-06 20:00] VITALS: BP 135/54
--- NOTE | 2016-08-06 20:00 | NUR ---
RN INITIAL NOTE; PT ON THE BED WITHOUT ANY DISTRESS , A/O x 1 ,CONFUSED ,SCREAMING SOMETIME DUE TO DEMENTIA, SWAZI SPEAKER. BREATHING EVEN AND UNLABORED ON 2 LPM VIA NC, FAMILY AT THE BED SITE , R WRIST 22G INTACT AND PATENT WITH CONTINUE NS @ 100 MLS/HR, PT ON PAIN, WILL GIVE PAIN MEDS, F/C INTACT AND DRAINING YELLOWISH URINE AND INCONTINENT TO BOWEL , BED IN THE LOWEST/LOCKED POSITION, WILL KEEP COMFORTABLE, CALL LIGHT WITHIN REACH. WILL CONTINUE TO MONITOR .
[2016-08-06] MEDS: LEVOFLOXACIN 500 MG /D5W 100ML 500 MG in PREMIX 1 EA IV SCH (20:11)
[2016-08-06] MEDS: HYDROCODONE/APAP 5/325MG 1 EACH TABLET PO PRN (20:19)
[2016-08-06] MEDS: ATORVASTATIN 10 MG TABLET PO SCH (21:21)
[2016-08-06] MEDS: ZOLPIDEM TARTRATE 5 MG TABLET PO PRN (21:52)
[2016-08-06] MEDS: IV NS 0.9% 1,000 ML IV PRN (22:57)
[2016-08-07] MEDS: INSULIN REGULAR, HUMAN 100 UNIT/ML 3 ML VIAL SQ PRN ×4 (00:23→23:18)
[2016-08-07] MEDS: BLOOD SUGAR DIAGNOSTIC 1 EACH STRIP IN SCH ×5 (00:38→23:20)
[2016-08-07] MEDS: VANCOMYCIN 1.25 GM in IV D5W 500 ML IV SCH ×2 (01:46→21:07)
[2016-08-07] MEDS ORDERED: SECONDARY IV SET 1 EA INFUS.SET MC ONE (03:31)
[2016-08-07 04:00] VITALS: BP 147/50
[2016-08-07] MEDS: SENNOSIDES 8.6 MG TABLET PO SCH ×2 (07:00→17:00)
--- NOTE | 2016-08-07 07:15 | NUR ---
RN MS INITIAL NOTES RECEIVED REPORT AND PT FROM PM NURSE, A&O X1 CONFUSED AND SCREAMING MANY TIMES, ON 2L BC SAT ABOVE 95% ,GALEANO CATH DRAINING URINE VIA GRAVITY, RT WRIST 22 G IV RUNNING NS @ 100 ML/HR INTACT AND PATENT NO S.S OF INFILTRATION NOTED, ALL NEEDS MET, ALL SAFETY MEASURES INITIATED, SIDE RAILS X2, BED LOW AND LOCKED, CALL LIGHT WITHIN REACH, WILL CONTINUE TO MONITOR.
--- NOTE | 2016-08-07 07:18 | NUR ---
RN EOS NOTE; PT REMAINED STABLE DURING THE SHIFT, SCREAMS SOMETIME , NO ANY DISTRESS NOTED DURING THE SHIFT. IV SITE INTACT AND PATENT WITH CONTINUE IVF , PRN NORCO AND AMBIEN GIVEN FOR PAIN AND INSOMNIA .BLOOD SUGAR CHECKED AND INSULIN GIVEN PER SLIDING SCALE , AM NURSE INDORSE TO CHECK BS CLOSELY , F/C INTACT AND DRAINING YELLOWISH URINE , REPOSITIONED Q2H , KEPT CLEAN AND DRY , ALL NEEDS ATTENDED PROMPTLY, NPO FOR SURGERY , CONSENT TAKEN , ENDORSE TO NEXT SHIFT FOR CONTINUITY OF CARE.
[2016-08-07 07:25] LABS: CALCIUM, SERUM 8.4 mg/dL (8.5-10.1); CREATININE 0.9 mg/dL (0.6-1.3); POTASSIUM 3.6 mmol/L (3.5-5.1)
[2016-08-07 08:00] VITALS: BP 165/57
[2016-08-07] MEDS: LACTOBACILLUS RHAMNOSUS GG 1 EACH CAP.SPRINK PO SCH ×2 (08:25→17:00)
[2016-08-07] MEDS: INSULIN DETEMIR 100 UNIT/ML CARTRIDGE SQ SCH ×2 (08:26→23:16)
[2016-08-07] MEDS: MULTIVIT, IRON, MIN NO. 8, FA 1 TAB TABLET PO SCH (08:26)
[2016-08-07] MEDS: FLUDROCORTISONE 0.1 MG TABLET PO SCH (08:26)
[2016-08-07] MEDS: VENLAFAXINE XR 75 MG CAP.SR.24H PO SCH (08:26)
[2016-08-07] MEDS: CLOPIDOGREL BISULFATE 75 MG TABLET PO SCH (08:26)
[2016-08-07] MEDS: ASCORBIC ACID 500 MG TABLET PO SCH (08:26)
[2016-08-07] MEDS: clonazePAM 0.5 MG TABLET PO SCH ×2 (08:26→17:00)
[2016-08-07] MEDS: DIVALPROEX SODIUM 125 MG TABLET.DR PO SCH ×3 (08:26→17:00)
[2016-08-07] MEDS: CADEXOMER IODINE 40 GM TUBE TP SCH (08:27)
--- NOTE | 2016-08-07 11:13 | NUR ---
RN MS NOTES PT LEFT FOR DEBRIDEMENT FOR OR, ALL CHECKLIST COMPLETED, PT STABLE FOR TRANSFER TO OR, SPOKE WITH FAMILY AND STATED OK FOR PROCEDURE.
[2016-08-07] MEDS ORDERED: LIDOCAINE HCL/PF 1% 30 ML SDV ONE (11:40)
--- NOTE | 2016-08-07 13:52 | NUR ---
RN MS NOTES PTS BG IS 45 MG/DL RECHECKED AND 48 MG/DL, PTS DAUGHTER LUIGI AT BEDSIDE AND REFUSES RN TO GIVE D5 VIA IV, MD DR ALDRIDGE NOTIFIED, WILL CONTINUE TO MONITOR, PTS FAMILY STATES PT IS EATING RIGHT NOW AND BG WILL RISE SOON, EDUCATION AND RISKS PROVIDED TO PT AND FAMILY, PT STILL REFUSES WELL FAMILY.
[2016-08-07] MEDS ORDERED: ANESTHESIA TRAY IN PYXIS 1 EA TRAY MC ONE (13:55)
[2016-08-07] MEDS: SOD FERRIC GLUC 125 MG in IV NS 0.9% 100 ML IV SCH (15:17)
--- NOTE | 2016-08-07 15:21 | NUR ---
RN MS NOTES RECHECKED BG AFTER PT ATE, NOW 90 MG.DL.
[2016-08-07] MEDS: ACETAMINOPHEN 325 MG TABLET PO PRN (15:34)
[2016-08-07 16:00] VITALS: BP 123/51
--- NOTE | 2016-08-07 18:50 | NUR ---
RN MS HILL NOTES PT STABLE, BED BATH PROVIDED, ALL NEEDS MET, PTS AT BEDSIDE AT THIS TIME, WILL ENDORSE TO PM NURSE.
[2016-08-07] MEDS: LEVOFLOXACIN 500 MG /D5W 100ML 500 MG in PREMIX 1 EA IV SCH (19:30)
[2016-08-07] MEDS: IV NS 0.9% 1,000 ML IV PRN (19:33)
[2016-08-07 20:00] VITALS: BP 155/55
--- NOTE | 2016-08-07 20:00 | NUR ---
RN INITIAL NOTE; PT ON THE BED RESTING CALM WITHOUT ANY DISTRESS , A/O x 1 ,CONFUSED , SLOVAK SPEAKER. BREATHING EVEN AND UNLABORED ON 2 LPM VIA NC, FAMILY AT THE BED SITE , KATTY MIDLINE INTACT AND PATENT WITH CONTINUE NS @ 100 MLS/HR, DENIED ANY PAIN AT THIS TIME, F/C INTACT AND DRAINING YELLOWISH URINE AND INCONTINENT TO BOWEL ,S/P WOUND DEBRIDEMENT AND WOUND VAC NEGATIVE PRESSURE WOUND THERAPY, DRESSING INTACT , BED IN THE LOWEST/LOCKED POSITION, WILL KEEP COMFORTABLE, CALL LIGHT WITHIN REACH. WILL CONTINUE TO MONITOR .
[2016-08-07] MEDS: MAGNESIUM HYDROXIDE 30 ML UDC PO PRN (20:34)
[2016-08-07] MEDS: ATORVASTATIN 10 MG TABLET PO SCH (21:11)
[2016-08-07] MEDS: ZOLPIDEM TARTRATE 5 MG TABLET PO PRN (21:11)
[2016-08-07] MEDS: MINERAL OIL 133 ML (PYXIS) 1 EA ENEMA RC PRN (22:09)
--- NOTE | 2016-08-07 23:30 | NUR ---
RN NOTE; MILK OF MAGNESIA AND FLEET MINERAL OIL ENEMA GIVEN PER FAMILY(daughter ) REQUEST , PT ABDOMEN IS SOFT , WILL CONTINUE TO MONITOR.
[2016-08-08 04:00] VITALS: BP 157/67
[2016-08-08] MEDS: INSULIN REGULAR, HUMAN 100 UNIT/ML 3 ML VIAL SQ PRN ×2 (05:18→18:11)
[2016-08-08] MEDS: BLOOD SUGAR DIAGNOSTIC 1 EACH STRIP IN SCH ×3 (05:19→18:12)
--- NOTE | 2016-08-08 06:53 | NUR ---
RN EOS NOTE; PT REMAINED STABLE DURING THE SHIFT, SCREAMS SOMETIME , NO ANY DISTRESS NOTED DURING THE SHIFT. IV FLUID AND ATB TOLERATED WELL. PRN AMBIEN GIVEN FOR INSOMNIA .BLOOD SUGAR CHECKED AND INSULIN GIVEN PER SLIDING SCALE , S/P WOUND DEBRIDEMENT AND WOUND VAC, NO OUTPUT. DENIED ANY PAIN . F/C INTACT AND DRAINING YELLOWISH URINE , VERY SMALL AMOUNT OF BM X 1. REPOSITIONED Q2H , KEPT CLEAN AND DRY , ALL NEEDS ATTENDED PROMPTLY, ENDORSE TO NEXT SHIFT FOR CONTINUITY OF CARE.
[2016-08-08 06:58] LABS: CALCIUM, SERUM 8.6 mg/dL (8.5-10.1); CREATININE 0.9 mg/dL (0.6-1.3); POTASSIUM 3.6 mmol/L (3.5-5.1)
[2016-08-08] MEDS: SENNOSIDES 8.6 MG TABLET PO SCH ×3 (07:00→19:10)
[2016-08-08 08:00] VITALS: BP 184/59
--- NOTE | 2016-08-08 08:00 | NUR ---
MS RN NOTE PATENT IN BED , ALL NEEDS ATTENDED ,WITH F\C TO GRAVITY WITH YELLOW COLOR URINE , RT FOOT WITH WOUND VAC NO DRAINAGE NOTED AT THIS TIME , RT UPPER ARM MID LINE IN PLACE ,NO S \S INFECTION NOTED , BED IN LOWEST AND LOCKED POSITION REFUSED BREAKFAST AND REFUSED TO TAKE L ALL HER MEDS, DR KELLY AWARE WILL F\U
[2016-08-08] MEDS: MULTIVIT, IRON, MIN NO. 8, FA 1 TAB TABLET PO SCH (09:00)
[2016-08-08] MEDS: CLOPIDOGREL BISULFATE 75 MG TABLET PO SCH (09:00)
[2016-08-08] MEDS: VENLAFAXINE XR 75 MG CAP.SR.24H PO SCH ×2 (09:00→11:04)
[2016-08-08] MEDS: INSULIN DETEMIR 100 UNIT/ML CARTRIDGE SQ SCH ×2 (09:00→21:41)
[2016-08-08] MEDS: LACTOBACILLUS RHAMNOSUS GG 1 EACH CAP.SPRINK PO SCH ×2 (09:00→18:10)
[2016-08-08] MEDS: clonazePAM 0.5 MG TABLET PO SCH ×2 (09:00→11:05)
[2016-08-08] MEDS: DIVALPROEX SODIUM 125 MG TABLET.DR PO SCH ×3 (09:00→18:10)
[2016-08-08] MEDS: ASCORBIC ACID 500 MG TABLET PO SCH (09:00)
--- NOTE | 2016-08-08 11:11 | NUR ---
MS RN NOTE SPOKE WITH DR KELLY NOTIFIED THAT REFUSED PO MEDS IN AM ALSO BP 185\59, STATED THAT OK WILL F\U
[2016-08-08] MEDS: IV NS 0.9% 1,000 ML IV PRN (12:28)
--- NOTE | 2016-08-08 12:35 | NUR ---
MS RN NOTE BLOOD SUGAR 91 MG\ DL NO COVERAGE WITH INSULIN, DAUGHTER AT BEDSIDE ,ABLE TO FEED PATENT
--- NOTE | 2016-08-08 13:21 | NUR ---
CHURN OPERATOR WOUND VAC ORDERS CLARIFIED WITH DPM REGARDING VAC DRESSING CHANGES TO BE DONE 3X WEEKLY AND PRN SOILING/LEAKAGE. VAC TO RUN CONTINUOUS SETTING AT 125MMHG.
[2016-08-08] MEDS: VANCOMYCIN 1.25 GM in IV D5W 500 ML IV SCH (15:33)
[2016-08-08 16:00] VITALS: BP 125/63
--- NOTE | 2016-08-08 16:24 | NUR ---
MS RN NOTE PATIENT YEILING AND SREAMING CALLED DR KELLY WITH ORDER OF ATIVAN 1MG X 1 DOSE ORDER CARRIED OUT.
[2016-08-08] MEDS ORDERED: LORAZEPAM INJ 2 MG/ML VIAL IV ONE (16:30)
--- NOTE | 2016-08-08 18:15 | NUR ---
PHYSICIAN PRACTICE MARKET MANAGER NOTE FAMILY AT BEDSIDE, ALL NEEDS ATTENDED, FEEDING DINER, NOT IN ACUTE DISTRESS
--- NOTE | 2016-08-08 19:30 | NUR ---
RN NOTES RECEIVED PT AWAKE ON BED AOX 1 VERY CONFUSED WITH AT BEDSIDE. PT HAS NO ACUTE RESP DISTRESS ON O2 4LPM VIA NC SATING 100%. BILATERAL BREATH SOUND CLEAR. IV SITE ON KATTY MIDLINE RUNNING WITH NS @ 100 CC/HR INTACT AND PATENT. WOUND VAC @ 125 MMHG ON RIGHT FOOT RUNNING . F/C DRAINED WITH YELLOW COLOR URINE VIA GRAVITY. OFFLOADED EXT WITH PILLOWS. REDUCED PRESSURE TO BONY PROMINENCE AREA. KEPT PT CLEAN AND COMFORTABLE IN BED. WILL CONTINUE TO MONITOR.
[2016-08-08 20:00] VITALS: BP 164/52
[2016-08-08] MEDS: LEVOFLOXACIN 500 MG /D5W 100ML 500 MG in PREMIX 1 EA IV SCH (20:33)
[2016-08-08] MEDS: ZOLPIDEM TARTRATE 5 MG TABLET PO PRN (20:34)
[2016-08-08] MEDS: ATORVASTATIN 10 MG TABLET PO SCH (21:35)
[2016-08-08] MEDS: HYDROCODONE/APAP 5/325MG 1 EACH TABLET PO PRN (21:42)
[2016-08-09] MEDS: BLOOD SUGAR DIAGNOSTIC 1 EACH STRIP IN SCH ×7 (00:17→21:05)
[2016-08-09] MEDS: INSULIN REGULAR, HUMAN 100 UNIT/ML 3 ML VIAL SQ PRN ×2 (00:20→21:08)
[2016-08-09] MEDS: IV NS 0.9% 1,000 ML IV PRN (03:50)
[2016-08-09 04:00] VITALS: BP_SYST 138; BP_SYST 140; BP_DIAS 35; BP_DIAS 55
[2016-08-09] MEDS: DEXTROSE 50%-WATER 50 ML DISP.SYRIN IV PRN ×2 (06:44→12:41)
--- NOTE | 2016-08-09 07:00 | NUR ---
RN NOTES PATIENT ASLEEP ON BED QUIET AT THIS TIME AND CALM RESPONSIVE TO VERBAL STIMULI. BS 37 MG/DL REPEAT TO RECHECKED BS = 38 MG/DL D50% GIVEN PRN ORDER. AND OFFERED AND GAVE SUGAR AND OJ. AFTER 15 MINUTES PT STARTED TO WAKE UP AND STARTED TO SCREAM AND YELLED NORMAL MENTAL STATUS. RECHECKED BS = 152 MG/DL INTERVENTION EFFECTIVE. ENDORSED CONTINUITY OF CARE TO AM NURSE.
--- NOTE | 2016-08-09 07:15 | NUR ---
RN INITIAL NOTE PT RECEIVED IN BED, SLEEPING. EASILY AROUSED. PT IS ABLE TO MAKE NEEDS KNOWN. REQUESTING PAIN MEDICATION. RESPIRATIONS ARE EVEN AND UNLABORED. SATING WELL ON 3L N/C. NO S/S OF RESPIRATORY DISTRESS OR SOB. GALEANO CATHETER DRAINING TO GRAVITY. IV SITE FLUSHED AND PATENT. DRESSING C/D/I. SKIN WARM AND DRY TO TOUCH. SAFETY MEASURES IMPLEMENTED. BED IN LOCKED LOW POSITION. CALL LIGHT AND BELONGINGS WITHIN EASY REACH. WILL CONTINUE TO MONITOR. Addendum: 08/09/16 at 1004 by CAMILA SZYMANSKI RN PT SPEAKS WELSH. HARD TO AROUSE. GAVE PAIN MEDICATION PRIOR TO CHANGING DRESSING ON RIGHT HEEL
[2016-08-09 07:19] LABS: BASOPHILS % (AUTO) 0.4 % (0.0-2.0); EOSINOPHILS # (AUTO) 0.3 /CMM (0.0-0.7); EOSINOPHILS % (AUTO) 2.7 % (0.0-6.0); HEMATOCRIT 26 % (33-45); HEMOGLOBIN 8.5 g/dL (11.5-14.8); LYMPHOCYTES # (AUTO) 3.2 /CMM (0.8-4.8); LYMPHOCYTES % (AUTO) 27.8 % (20.0-44.0); MEAN CORPUSCULAR HEMOGLOBIN 30 PG (26.0-33.0); MEAN CORPUSCULAR HGB CONC 33 g/dl (31.0-36.0); MEAN CORPUSCULAR VOLUME 89 fL (82-100); MONOCYTES # (AUTO) 1.1 /CMM (0.1-1.30); MONOCYTES % (AUTO) 9.6 % (2.0-12.0); NEUTROPHILS % (AUTO) 59.5 % (43.0-81.0); PLATELET COUNT (AUTO) 189 /CMM (150-450); RDW COEFFICIENT OF VARIATION 14.3 (11.5-15.0); WHITE BLOOD COUNT (AUTO) 11.7 K/uL (4.3-11.0)
[2016-08-09 08:00] VITALS: BP 174/83
[2016-08-09] MEDS: VANCOMYCIN 1.25 GM in IV D5W 500 ML IV SCH (08:00)
[2016-08-09 08:49] LABS: ALBUMIN 2.3 g/dL (3.4-5.0); BILIRUBIN,TOTAL 0.2 mg/dL (0.2-1.0); CALCIUM, SERUM 8.6 mg/dL (8.5-10.1); CREATININE 0.8 mg/dL (0.6-1.3); MAGNESIUM 1.3 mg/dL (1.8-2.4); PHOSPHORUS 1.8 mg/dL (2.5-4.9); POTASSIUM 3.8 mmol/L (3.5-5.1); TOTAL PROTEIN, SERUM 6.2 g/dL (6.4-8.2)
[2016-08-09] MEDS: INSULIN DETEMIR 100 UNIT/ML CARTRIDGE SQ SCH (09:00)
[2016-08-09] MEDS: clonazePAM 0.5 MG TABLET PO SCH (09:24)
[2016-08-09] MEDS: MULTIVIT, IRON, MIN NO. 8, FA 1 TAB TABLET PO SCH (09:24)
[2016-08-09] MEDS: CLOPIDOGREL BISULFATE 75 MG TABLET PO SCH (09:24)
[2016-08-09] MEDS: DIVALPROEX SODIUM 125 MG TABLET.DR PO SCH ×3 (09:24→17:00)
[2016-08-09] MEDS: ASCORBIC ACID 500 MG TABLET PO SCH (09:24)
[2016-08-09] MEDS: LACTOBACILLUS RHAMNOSUS GG 1 EACH CAP.SPRINK PO SCH ×2 (09:24→17:00)
[2016-08-09] MEDS: HYDROCODONE/APAP 5/325MG 1 EACH TABLET PO PRN (09:25)
--- NOTE | 2016-08-09 09:36 | NUR ---
RN NOTE HELP AC. TROUGH 24
[2016-08-09] MEDS: MAGNESIUM HYDROXIDE 30 ML UDC PO PRN (10:45)
[2016-08-09] MEDS ORDERED: IV D5/ 0.9% NACL 1,000 ML IV ONE (12:53)
[2016-08-09] MEDS: IV D5/ 0.9% NACL 1,000 ML IV PRN (12:58)
--- NOTE | 2016-08-09 12:59 | NUR ---
PT. BS DROPPED 35 ,PT. VERY SLEEPY MD NOTIFIED ,WILL HOLD INSULIN COVERAGE AND CHANGE IVF TO D5 NS PER MD ORDER.
[2016-08-09] MEDS ORDERED: INSULIN REGULAR, HUMAN 100 UNIT/ML 3 ML VIAL SQ PRN (13:00)
[2016-08-09] MEDS ORDERED: BLOOD SUGAR DIAGNOSTIC 1 EACH STRIP IN SCH (13:00)
[2016-08-09] MEDS ORDERED: DEXTROSE 50%-WATER 50 ML DISP.SYRIN IV PRN ×2 (13:00→21:00)
--- NOTE | 2016-08-09 13:53 | NUR ---
DR. CHARLES D/C KLONOPIN AND SLEEPING PILLS AND HOLD SEDATION FOR NOW ,WILL CONTINUE TO MONITOR,CLARIFIED FOR HEAD CT MD VERBALIZED NO AT THIS TIME.
[2016-08-09 14:11] VITALS: BP 124/54
[2016-08-09] MEDS ORDERED: K PHOS NEUTRAL 250 MG TABLET PO ONE (14:30)
--- NOTE | 2016-08-09 15:23 | NUR ---
RN NOTES PT'S MEDS HELD. UNAROUSABLE. MADE AWARE.
[2016-08-09 16:00] VITALS: BP 140/59
[2016-08-09] MEDS ORDERED: VANCOMYCIN 1 GM in IV D5W 250 ML IV SCH (18:00)
--- NOTE | 2016-08-09 19:09 | NUR ---
RN CLOSING NOTE PT RESTING IN BED COMFORTABLY. ALL MD ORDERS CARRIED OUT. PT KEPT CLEAN AND DRY. WILL GIVE REPORT TO PM NURSE FOR ZUHAIR.
--- NOTE | 2016-08-09 19:15 | NUR ---
RN NOTES RECEIVED PT ASLEEP ON BED, NO ACUTE RESP DISTRESS ON O2 4LPM VIA NC SATING 100%. DAUGHTER AT BEDSIDE CONCERNED REGARDING THE PATIENT STATUS AND DISCHARGE. PT REMOVING IT MOST OF THE TIME. BILATERAL BREATH SOUND CLEAR. IV SITE ON KATTY MIDLINE RUNNING WITH D5W @ 100 CC/HR INTACT AND PATENT. ON WOUND VAC @ 125 MMHG ON RIGHT FOOT . F/C DRAINED WITH YELLOW COLOR URINE VIA GRAVITY. OFFLOADED EXT WITH PILLOWS. REDUCED PRESSURE TO BONY PROMINENCE AREA. KEPT PT CLEAN AND COMFORTABLE IN BED. WILL CONTINUE TO MONITOR.
[2016-08-09 20:00] VITALS: BP 153/46
[2016-08-09] MEDS: ATORVASTATIN 10 MG TABLET PO SCH (20:16)
[2016-08-09] MEDS: LEVOFLOXACIN 500 MG /D5W 100ML 500 MG in PREMIX 1 EA IV SCH (20:16)
[2016-08-09] MEDS: SENNOSIDES 8.6 MG TABLET PO SCH (20:16)
[2016-08-09] MEDS: MINERAL OIL 133 ML (PYXIS) 1 EA ENEMA RC PRN (20:34)
[2016-08-10] VITALS: BP 132/60
[2016-08-10] MEDS: INSULIN REGULAR, HUMAN 100 UNIT/ML 3 ML VIAL SQ PRN ×5 (00:48→20:46)
[2016-08-10] MEDS: BLOOD SUGAR DIAGNOSTIC 1 EACH STRIP IN SCH ×6 (00:48→20:37)
[2016-08-10 04:00] VITALS: BP_SYST 150; BP_SYST 170; BP_DIAS 47; BP_DIAS 49
[2016-08-10] MEDS ORDERED: IV SET PRIMARY PUMP SET 1 EA INFUS.SET MC ONE (05:52)
[2016-08-10] MEDS: IV D5/ 0.9% NACL 1,000 ML IV PRN (06:00)
--- NOTE | 2016-08-10 07:00 | NUR ---
RN NOTES RECEIVED PT ASLEEP ON BED, NO ACUTE RESP DISTRESS ON O2 4LPM VIA NC SATING 100%. BILATERAL BREATH SOUND CLEAR. IV SITE ON KATTY MIDLINE RUNNING WITH D5W @ 100 CC/HR INTACT AND PATENT. ON WOUND VAC @ 125 MMHG ON RIGHT FOOT . F/C DRAINED WITH YELLOW COLOR URINE VIA GRAVITY. OFFLOADED EXT WITH PILLOWS. REDUCED PRESSURE TO BONY PROMINENCE AREA. KEPT PT CLEAN AND COMFORTABLE IN BED. WILL CONTINUE TO MONITOR.
[2016-08-10 07:09] LABS: CALCIUM, SERUM 8.5 mg/dL (8.5-10.1); CREATININE 0.8 mg/dL (0.6-1.3); POTASSIUM 3.9 mmol/L (3.5-5.1)
--- NOTE | 2016-08-10 07:15 | NUR ---
RN NOTES PT AWAKE AT THIS TIME WOKE UP SCREAMING AND YELLING , DENIES PAIN. AFEBRILE. NO SOB. O2 4LPM VIA NC TOLERATED WELL EVEN PT HAS AN EPISODE OF REMOVING THE OR BUT SATURATION REMAINED > 94%. WOUND VAC ONGOING. IVF ONGOING. KEPT PT CLEAN AND COFORTABLE IN BED. ENDORSED TO AM NURSE REGARDING THE FAMILY WANTS TO TAKL TO CULTURE MEDIA LABORATORY ASSISTANT AND .
[2016-08-10 08:00] VITALS: BP 139/52
[2016-08-10] MEDS: MULTIVIT, IRON, MIN NO. 8, FA 1 TAB TABLET PO SCH (09:52)
[2016-08-10] MEDS: CLOPIDOGREL BISULFATE 75 MG TABLET PO SCH (09:52)
[2016-08-10] MEDS: VENLAFAXINE XR 75 MG CAP.SR.24H PO SCH (09:52)
[2016-08-10] MEDS: ASCORBIC ACID 500 MG TABLET PO SCH (09:53)
[2016-08-10] MEDS: DIVALPROEX SODIUM 125 MG TABLET.DR PO SCH ×3 (09:53→16:29)
[2016-08-10] MEDS: LACTOBACILLUS RHAMNOSUS GG 1 EACH CAP.SPRINK PO SCH ×2 (09:53→16:29)
[2016-08-10 12:00] VITALS: BP 130/49
[2016-08-10 12:16] LABS: RENIN, PLASMA 1.153 ng/mL/hr (0.167-5.380)
[2016-08-10 13:16] LABS: RENIN, PLASMA 2.906 ng/mL/hr (0.167-5.380)
[2016-08-10 16:00] VITALS: BP 166/67
[2016-08-10] MEDS: SENNOSIDES 8.6 MG TABLET PO SCH (16:29)
[2016-08-10] MEDS ORDERED: K PHOS NEUTRAL 250 MG TABLET PO ONE (17:30)
[2016-08-10] MEDS: CEFTRIAXONE 1 G in IV D5W 50 ML IV SCH (17:40)
--- NOTE | 2016-08-10 19:45 | NUR ---
RN NOTES PT AWAKE ON BED WITH AND DAUGHTER AT BEDSIDE. NO ACUTE RESP DISTRESS. ON O2 4LPM VIA NC TOLERATED WELL. SATING 97%. PT IS AWAKE AOX 1 CONFUSED, YELLED AND SAYING NO WHEN ASKED QUESTION. IVF D5NS @ 100 CC/HR RUNNING WELL NO INFILTRATION OR REDNESS. WITH WOUND VAC ON RIGHT FOOT. F/C DRAINED WITH YELLOW COLOR URINE VIA GRAVITY. TURNED AND REPOSITIONED. OFFLOADED EXT WITH PILLOWS REDUCED PRESSURE TO BONY PROMINENCE AREA. KEPT PT CELAN AND DRY WILL CONTINUE TO MONITOR.
[2016-08-10 20:00] VITALS: BP 139/55
[2016-08-10] MEDS: ATORVASTATIN 10 MG TABLET PO SCH (20:30)
[2016-08-11] MEDS: INSULIN REGULAR, HUMAN 100 UNIT/ML 3 ML VIAL SQ PRN ×3 (01:30→21:06)
[2016-08-11] MEDS: BLOOD SUGAR DIAGNOSTIC 1 EACH STRIP IN SCH ×6 (01:33→21:01)
[2016-08-11 04:00] VITALS: BP 126/60
[2016-08-11 07:11] LABS: CALCIUM, SERUM 8.2 mg/dL (8.5-10.1); CREATININE 0.9 mg/dL (0.6-1.3); PHOSPHORUS 1.7 mg/dL (2.5-4.9)
--- NOTE | 2016-08-11 07:27 | NUR ---
RN NOTES PT ASLEEP ABOUT 4 HOURS TODAY, NO BOWEL, NOTED WITH SLIGHT FEVER OF 99.8 COOL MEASURES RENDERED AFTER 30 MINUTES RECHECKED TEMP 98.9. FAMILY AWARE. ENDORSED TO NEXT SHIFT FOR CONTINUITY OF CARE.
[2016-08-11 08:00] VITALS: BP 121/44
--- NOTE | 2016-08-11 08:47 | NUR ---
WOUND CARE FOLLOW UP/VAC DRESSING CHANGE: PT SEEN FOR VAC DSG CHANGE. DR WARREN IN TO EXAMINE HEEL WOUND. RED GRANULATION TISSUE NOTED WITH SOME YELLOW SLOUGH, SCANT PINK/BROWN DRAINAGE NOTED. SKIN PREP AND VAC DRAPE USED FOR PERIWOUND AREAS, GRANUFOAM TO WOUND, BRIDGING TECHNIQUE USED. VAC AT 125mmHg CONTINUOUS SETTING. ONLY 25cc RED/BROWNISH DRAINAGE IN CANISTER. PT TOLERATED WELL. CONTINUE ALL SKIN PROTECTION MEASURES. DISCUSSED WITH NURSING STAFF. IN AGREEMENT WITH PLAN OF CARE.
[2016-08-11] MEDS: VENLAFAXINE XR 75 MG CAP.SR.24H PO SCH (09:13)
[2016-08-11] MEDS: CLOPIDOGREL BISULFATE 75 MG TABLET PO SCH (09:13)
[2016-08-11] MEDS: SENNOSIDES 8.6 MG TABLET PO SCH ×2 (09:13→16:59)
[2016-08-11] MEDS: LACTOBACILLUS RHAMNOSUS GG 1 EACH CAP.SPRINK PO SCH ×2 (09:13→16:59)
[2016-08-11] MEDS: DIVALPROEX SODIUM 125 MG TABLET.DR PO SCH ×3 (09:13→16:58)
[2016-08-11] MEDS: ASCORBIC ACID 500 MG TABLET PO SCH (09:13)
[2016-08-11 09:26] LABS: ALDOSTERONE 1.6 ng/dL (0.0-30.0)
[2016-08-11 09:26] LABS: ALDOSTERONE <1.0 ng/dL (0.0-30.0)
[2016-08-11] MEDS: MULTIVIT, IRON, MIN NO. 8, FA 1 TAB TABLET PO SCH (09:59)
[2016-08-11 12:00] VITALS: BP 116/75
[2016-08-11] MEDS ORDERED: K PHOS NEUTRAL 250 MG TABLET PO ONE (14:00)
[2016-08-11] MEDS ORDERED: FUROSEMIDE 40 MG/4 ML VIAL IV ONE (14:00)
[2016-08-11] MEDS: ACETAMINOPHEN 325 MG TABLET PO PRN (15:59)
[2016-08-11 16:00] VITALS: BP 119/53
[2016-08-11] MEDS: CEFTRIAXONE 1 G in IV D5W 50 ML IV SCH (16:58)
[2016-08-11] MEDS ORDERED: FEE PK DOSING 1 MIN EA MC ONE (18:12)
[2016-08-11] MEDS ORDERED: IV NS 0.9% 250 ML IV ONE (18:46)
[2016-08-11 20:00] VITALS: BP 137/50
[2016-08-11] MEDS: ATORVASTATIN 10 MG TABLET PO SCH (20:43)
[2016-08-11] MEDS: PIPERACILLIN /TAZOBACTAM 3.375 G in IV D5W 50 ML IV SCH (20:50)
[2016-08-11] MEDS: MAGNESIUM HYDROXIDE 30 ML UDC PO PRN (20:55)
[2016-08-11] MEDS: VANCOMYCIN 0.75 GM in IV D5W 250 ML IV SCH (21:10)
[2016-08-12] MEDS: BLOOD SUGAR DIAGNOSTIC 1 EACH STRIP IN SCH ×6 (01:10→21:10)
[2016-08-12] MEDS: INSULIN REGULAR, HUMAN 100 UNIT/ML 3 ML VIAL SQ PRN ×5 (01:22→21:06)
[2016-08-12] MEDS: PIPERACILLIN /TAZOBACTAM 3.375 G in IV D5W 50 ML IV SCH ×4 (01:26→18:04)
[2016-08-12 04:00] VITALS: BP 168/70
[2016-08-12] MEDS: SENNOSIDES 8.6 MG TABLET PO SCH ×2 (06:34→16:53)
[2016-08-12] MEDS: VANCOMYCIN 0.75 GM in IV D5W 250 ML IV SCH ×2 (07:07→18:07)
--- NOTE | 2016-08-12 07:18 | NUR ---
RN INITIAL NOTES: Rec'd pt awake on bed w/ HOB elevated. Pt on O2 at 4lpm/NC, noted wheezes on both lungs upon auscultation, RR 22, saturating at 97%. Pt has KATTY midline, patent & intact w/ no signs of infection/ infiltration noted. Has FC patent & intact draining to adequate urine output. Has R heel wound covered w/ dry & intact dressing w/ wound vac at 125 mmHg. Call light placed w/in reach. Bed kept low & in locked position. Will continue to monitor.
[2016-08-12] MEDS ORDERED: FUROSEMIDE 40 MG/4 ML VIAL IV SCH ×2 (07:30→17:00)
[2016-08-12] MEDS ORDERED: FUROSEMIDE 40 MG/4 ML VIAL IV ONE ×4 (07:30→17:00)
--- NOTE | 2016-08-12 07:44 | NUR ---
PT BLOOD GLUSOE OVERNIGHT WAS ELEVATED ,PER DAUGHTER PT HAD CHOCOLATE CAKE DUE TO PT'S BIRTHDAY,INSULIN COVERAGE GIVEN.MIDLINE DRAWS WELL,ALL LABS DRAWN, CONTINUE WITH ANTIBIOTICS,VSS,AFEBRILE ,WOUND VAC HAS NO OUTPIT OVERNIGHT ,DRESSING INTACT,NO BM OVERNIGHT DESPITE MOM GIVEN,WILL GIVE ENEMA TODAY ORDERED.PT DIDM'T SLEEP ALL NIGHT KEPT SCREAMING.OTHERWISE CONTINUE TO MONITOR.
[2016-08-12 07:45] LABS: CALCIUM, SERUM 8.2 mg/dL (8.5-10.1); CREATININE 1.1 mg/dL (0.6-1.3); POTASSIUM 3.5 mmol/L (3.5-5.1)
[2016-08-12 08:00] VITALS: BP 119/37
--- NOTE | 2016-08-12 09:00 | NUR ---
RN NOTES: As per Dr. Min, give 1 dose of 40 mg Lasix only then will give another one at 5pm.
[2016-08-12] MEDS: ASCORBIC ACID 500 MG TABLET PO SCH (09:17)
[2016-08-12] MEDS: DIVALPROEX SODIUM 125 MG TABLET.DR PO SCH ×3 (09:17→16:53)
[2016-08-12] MEDS: VENLAFAXINE XR 75 MG CAP.SR.24H PO SCH (09:17)
[2016-08-12] MEDS: CLOPIDOGREL BISULFATE 75 MG TABLET PO SCH (09:17)
[2016-08-12] MEDS: LACTOBACILLUS RHAMNOSUS GG 1 EACH CAP.SPRINK PO SCH ×2 (09:17→16:58)
[2016-08-12] MEDS: MULTIVIT, IRON, MIN NO. 8, FA 1 TAB TABLET PO SCH (09:21)
--- NOTE | 2016-08-12 10:10 | NUR ---
DR. KELLY HOLD D/C R/T PROGRESSIVE CONGESTION PER CXR WILL REPEAT LASIX AT 5 PM.CM MADE AWARE.
--- NOTE | 2016-08-12 10:30 | NUR ---
RN NOTES: PT evaluation was done. Family at bedside.
--- NOTE | 2016-08-12 11:19 | NUR ---
RN NOTES: Pt seen & examined by Dr. Wilde.
--- NOTE | 2016-08-12 11:45 | NUR ---
RN NOTES: As per Dr. Wilde, taper down O2 from 4lpm to 2lpm then off, keep O2 sat >92%. Family made aware.
[2016-08-12] MEDS: POLYETHYLENE GLYCOL 3350 17 GM POWD.PACK PO SCH ×2 (12:57→20:58)
[2016-08-12] MEDS: BISACODYL SUPP (10 MG) 10 MG/SUPP.RECT SUPP.RECT RC PRN (12:57)
[2016-08-12] MEDS ORDERED: SECONDARY IV SET 1 EA INFUS.SET MC ONE (12:59)
--- NOTE | 2016-08-12 13:00 | NUR ---
RN NOTES: Accucheck 138 mg/dL, no insulin given. Pt offered lunch but refused. Family made aware, said that they'll come back to feed pt.
[2016-08-12 16:00] VITALS: BP 152/48
[2016-08-12] MEDS ORDERED: ACETAMINOPHEN 650 MG/SUPP.RECT RC PRN (17:30)
--- NOTE | 2016-08-12 18:00 | NUR ---
RN NOTES: Temp checked 100.1, Tylenol suppository given. Pt refused oral Tylenol.
--- NOTE | 2016-08-12 18:50 | NUR ---
RN NOTES: Temp rechecked, 99.1.
--- NOTE | 2016-08-12 18:50 | NUR ---
RN CLOSING NOTES: No acute changes noted w/in shift. Able to titrate down O2 to 2lpm / NC, O2 sats kept >92%. Tried on room air but sats goes down to 90%. Pt still noted w/ wheezes on both lungs upon auscultation. KATTY midline kept patent & intact w/ no signs of infection/ infiltration noted. FC kept patent & intact draining to adequate urine output. R heel wound kept dry & intact dressing w/ wound vac at 125 mmHg, no drainage noted. Pt had small bowel movement. Call light placed w/in reach. Bed kept low & in locked position. Will endorse to PM RN for ZUHAIR.
[2016-08-12 20:00] VITALS: BP 137/41
[2016-08-12] MEDS: ATORVASTATIN 10 MG TABLET PO SCH (20:58)
[2016-08-13] VITALS (7 sets, daily range): BP systolic 113–138; BP diastolic 49–92
[2016-08-13] MEDS: PIPERACILLIN /TAZOBACTAM 3.375 G in IV D5W 50 ML IV SCH ×4 (00:56→19:35)
[2016-08-13] MEDS: BLOOD SUGAR DIAGNOSTIC 1 EACH STRIP IN SCH ×6 (01:01→21:27)
[2016-08-13] MEDS: INSULIN REGULAR, HUMAN 100 UNIT/ML 3 ML VIAL SQ PRN ×6 (01:04→21:43)
--- NOTE | 2016-08-13 05:30 | NUR ---
RECEIVED PATIENT FROM [place]. ALERT AND ORIENTED X1, ENGLISH SPEAKING, UNABLE TO SPEAK SAMI, YELLING. NO SOB, NO RESPIRATORY DISTRESS, ON 2LPM VIA NC, 02 SAT 96%, ABDOMEN IS FIRMED, ACTIVE BOWEL SOUNDS, RIGHT UPPER ARM MIDLINE IS PATENT, RIGHT HEEL WOUND VAC ON CONTINUOUS SETTING AT 125 mmHG, NO OUTPUT AT THIS TIME, GALEANO CATHETER IS DRAINING WELL WITH YELLOW URINE. BILATERAL EXTREMITIES OFFLOADED, KEPT SAFE AND COMFORTABLE, CALL LIGHT WITHIN REACH.
--- NOTE | 2016-08-13 05:30 | NUR ---
RN NOTES: PATIENT IS TRANSFERRED TO [facility] [place] [facility] [place], NO DISTRESS NOTED. NO COMPLAINS OF PAIN.
--- NOTE | 2016-08-13 05:53 | NUR ---
INSULIN HELD, BG 117 MG/DL
--- NOTE | 2016-08-13 06:30 | NUR ---
PATIENT IN BED, ALERT AND AWAKE, SPITTING AT TIMES, SCREAMS, REFUSE SENNA PO, SPITTING MEDICATION. RT UPPER ARM MIDLINE IS PATENT AND INFUSING WELL. GALEANO CATHETER DRAINING WELL WITH YELLOW URINE, WOUND VAC TO RIGHT HEEL IS IN GOOD WORKING CONDITION, NO OUTPUT AT THIS TIME. AWAITING VANCO TROUGH. KEPT SAFE AND COMFORTABLE, CALL LIGHT WITHIN REACH.
[2016-08-13] MEDS: SENNOSIDES 8.6 MG TABLET PO SCH ×2 (06:33→18:54)
[2016-08-13] MEDS: VANCOMYCIN 0.75 GM in IV D5W 250 ML IV SCH (07:00)
--- NOTE | 2016-08-13 07:15 | NUR ---
MS RN NOTES RECEIVED PATIENT IN BED, AWAKE. ON OXYGEN AT 2L/MIN VIA NC, NO SOB NOTED. APPEARS CONFUSED, INTERMITTENT SCREAMING BEHAVIOR. CLEAN AND DRY, HOB ELEVATED. KATTY MIDLINE PATENT AND INTACT, FLUSHES WELL. WOUND RIGHT HEEL, WOUND VAC IN PLACE WITH NO FLUID DRAINAGE IN THE WOUND CANISTER. CALL LIGHT WITHIN REACH, BED LOW AND LOCKED. WILL CONT TO MONITOR.
[2016-08-13 08:10] LABS: BASOPHILS % (AUTO) 0.3 % (0.0-2.0); EOSINOPHILS # (AUTO) 0.3 /CMM (0.0-0.7); EOSINOPHILS % (AUTO) 3.7 % (0.0-6.0); HEMATOCRIT 26 % (33-45); HEMOGLOBIN 8.4 g/dL (11.5-14.8); LYMPHOCYTES # (AUTO) 2.3 /CMM (0.8-4.8); LYMPHOCYTES % (AUTO) 26.6 % (20.0-44.0); MEAN CORPUSCULAR HEMOGLOBIN 29 PG (26.0-33.0); MEAN CORPUSCULAR HGB CONC 33 g/dl (31.0-36.0); MEAN CORPUSCULAR VOLUME 89 fL (82-100); MONOCYTES # (AUTO) 0.8 /CMM (0.1-1.30); MONOCYTES % (AUTO) 9.2 % (2.0-12.0); NEUTROPHILS # (AUTO) 5.3 /CMM (1.8-8.9); NEUTROPHILS % (AUTO) 60.2 % (43.0-81.0); PLATELET COUNT (AUTO) 165 /CMM (150-450); RDW COEFFICIENT OF VARIATION 14.1 (11.5-15.0); RED BLOOD CELL COUNT(AUTO) 2.92 MIL/uL (4.0-5.2); WHITE BLOOD COUNT (AUTO) 8.8 K/uL (4.3-11.0)
[2016-08-13] MEDS: LACTOBACILLUS RHAMNOSUS GG 1 EACH CAP.SPRINK PO SCH ×2 (09:00→18:54)
[2016-08-13] MEDS: ASCORBIC ACID 500 MG TABLET PO SCH (09:00)
[2016-08-13] MEDS: MULTIVIT, IRON, MIN NO. 8, FA 1 TAB TABLET PO SCH (09:00)
[2016-08-13] MEDS: VENLAFAXINE XR 75 MG CAP.SR.24H PO SCH (09:00)
[2016-08-13] MEDS: DIVALPROEX SODIUM 125 MG TABLET.DR PO SCH ×3 (09:00→18:54)
[2016-08-13] MEDS: CLOPIDOGREL BISULFATE 75 MG TABLET PO SCH (09:00)
--- NOTE | 2016-08-13 09:21 | NUR ---
BS 154 MG/DL. GIVEN 2 UNITS INSULIN REGULAR SQ PER [employer] COVERAGE. AM MEDS NON ADMINISTERED, PATIENT REFUSED AND SPIT OUT SOME OF THE MEDICATIONS.
[2016-08-13] MEDS ORDERED: FUROSEMIDE 40 MG/4 ML VIAL IV ONE (10:00)
[2016-08-13 10:09] LABS: CALCIUM, SERUM 8.4 mg/dL (8.5-10.1); PHOSPHORUS 2.8 mg/dL (2.5-4.9); POTASSIUM 3.1 mmol/L (3.5-5.1)
[2016-08-13 10:25] LABS: MAGNESIUM 1.2 mg/dL (1.8-2.4)
[2016-08-13] MEDS ORDERED: SECONDARY IV SET 1 EA INFUS.SET MC ONE (11:30)
[2016-08-13] MEDS ORDERED: POTASSIUM CHLORIDE 20 MEQ TAB.PRT.SR PO SCH (11:30)
[2016-08-13] MEDS: Magnesium 1GM/D5W 100ML PREMIX 100 ML IV SCH ×4 (11:35→14:56)
--- NOTE | 2016-08-13 13:24 | NUR ---
BS 255MG/DL. GIVEN 6 UNITS INSULIN REGULAR SQ PER [employer] COVERAGE.
[2016-08-13] MEDS ORDERED: IV SET PRIMARY PUMP SET 1 EA INFUS.SET MC ONE ×2 (13:35→14:16)
[2016-08-13] MEDS: POTASSIUM CL. PREMIX PERIPHER. 50 ML IV SCH ×4 (14:18→17:40)
--- NOTE | 2016-08-13 17:46 | NUR ---
BS 282 MG/DL. GIVEN 6 UNITS INSULIN REGULAR SQ PER [employer] COVERAGE.
[2016-08-13] MEDS ORDERED: VANCOMYCIN 0.75 GM in IV D5W 250 ML IV SCH (19:00)
--- NOTE | 2016-08-13 19:00 | NUR ---
MS RN CLOSING NOTES PATIENT IN BED, NOT IN DISTRESS. BLOOD SUGAR MONITORED. KATTY MID LINE PATENT AND INTACT, FLUSHES WELL. POTASSIUM AND MAGNESIUM SUPPLEMENTED TODAY, TOLERATED WELL. ON ANTIBIOTIC WITH NO ADVERSE REACTION. AFEBRILE. WOUND RIGHT HEEL, WOUND VAC IN PLACE AT 125mm/Hg CONTINUOUS SUCTION. NO C/O PAIN AT THIS TIME. FAMILY AT THE BED SIDE. WILL ENDORSE TO ROLLER REPAIRER RN FOR CONTINUITY OF CARE.
--- NOTE | 2016-08-13 19:30 | NUR ---
MS RN INITIAL NOTE RECEIVED PT AWAKE WITH DAUGHTER IN LAW AT BEDSIDE, ORIENTED X1, NO SIGNS OF PAIN OR RESPIRATORY DISTRESS NOTED, CLEAN/DRY AND COMFORTABLE, SAFETY MEASURES WILL BE MAINTAINED AT ALL TIMES, NEEDS WILL BE ANTICIPATED AND ATTENDED TO DURING HOURLY ROUNDS AND NEEDED.
[2016-08-13] MEDS ORDERED: IV NS 0.9% 250 ML IV ONE (21:13)
[2016-08-13] MEDS: ATORVASTATIN 10 MG TABLET PO SCH (21:28)
[2016-08-13] MEDS: POLYETHYLENE GLYCOL 3350 17 GM POWD.PACK PO SCH (21:33)
[2016-08-14] MEDS: BLOOD SUGAR DIAGNOSTIC 1 EACH STRIP IN SCH ×4 (01:34→13:04)
[2016-08-14] MEDS: PIPERACILLIN /TAZOBACTAM 3.375 G in IV D5W 50 ML IV SCH ×3 (01:35→13:08)
[2016-08-14] MEDS: INSULIN REGULAR, HUMAN 100 UNIT/ML 3 ML VIAL SQ PRN ×4 (01:52→13:07)
[2016-08-14 06:18] LABS: CALCIUM, SERUM 8.8 mg/dL (8.5-10.1); CREATININE 1.1 mg/dL (0.6-1.3); MAGNESIUM 2.2 mg/dL (1.8-2.4); POTASSIUM 3.5 mmol/L (3.5-5.1)
--- NOTE | 2016-08-14 06:27 | NUR ---
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
[2016-08-14] MEDS: SENNOSIDES 8.6 MG TABLET PO SCH (07:00)
--- NOTE | 2016-08-14 07:00 | NUR ---
MS RN NOTES PATIENT IN BED, AWAKE, WITH SCREAMING BEHAVIOR. ON OXYGEN AT 2L/MIN VIA NC, BREATHING EVEN AND NON LABORED. KATTY MIDLINE PATENT AND INTACT, FLUSHES WELL. MAINTAIN COMFORTABLE IN BED, CALL LIGHT WITHIN REACH. RIGHT HEEL WOUND VAC AT 125mm/HG CONTINUOUS SUCTION. BED LOW AND LOCKED. WILL CONT TO MONITOR.
[2016-08-14 08:00] VITALS: BP 104/56
[2016-08-14] MEDS: MULTIVIT, IRON, MIN NO. 8, FA 1 TAB TABLET PO SCH (09:00)
[2016-08-14] MEDS: DIVALPROEX SODIUM 125 MG TABLET.DR PO SCH ×2 (09:00→13:00)
[2016-08-14] MEDS: ASCORBIC ACID 500 MG TABLET PO SCH (09:00)
[2016-08-14] MEDS: LACTOBACILLUS RHAMNOSUS GG 1 EACH CAP.SPRINK PO SCH (09:00)
[2016-08-14] MEDS: CLOPIDOGREL BISULFATE 75 MG TABLET PO SCH (09:00)
[2016-08-14] MEDS: VENLAFAXINE XR 75 MG CAP.SR.24H PO SCH (09:00)
--- NOTE | 2016-08-14 09:24 | NUR ---
BS 221MG/DL. GIVEN 4 UNITS INSULIN REGULAR SQ PER [employer] COVERAGE. UNABLE TO GIVE PO AM MEDICATIONS TO THE PATIENT, SPIT IT OUT MEDS.
--- NOTE | 2016-08-14 09:57 | NUR ---
WOUND CARE CONSULT: VAC DRESSING CHANGED TO RT HEEL. SEE NURSING ASSESSMENT. PT COMBATIVE TODAY DURING DRESSING CHANGE. PT NOTED TO HAVE MOISTURE RELATED EXCORIATION TO GLUTEAL CREASE. RECOMMENDATIONS MADE AND DISCUSSED WITH NURSING STAFF. ALL SKIN PROTECTION MEASURES IN PLACE. MD IN AGREEMENT WITH PLAN OF CARE. Addendum: 08/14/16 at 0959 by ADRIENNE ZULUAGA WNDNU Amended: Links added.
[2016-08-14] MEDS ORDERED: HYDROGEL DRESSING 90 GM TUBE TP SCH (11:00)
[2016-08-14] MEDS: BISACODYL SUPP (10 MG) 10 MG/SUPP.RECT SUPP.RECT RC PRN (11:56)
--- NOTE | 2016-08-14 12:00 | NUR ---
PATIENT IS SEEN BY WOUND NURSE TODAY, DRESSING CHANGED TO RIGHT HEEL WOUND. PER BASHIR, APPLY HYDROGEL TO RIGHT HEEL FOR DRESSING CHANGE. CALLED PHARMACY HYDROGEL NOT AVAILABLE AT THIS TIME.
--- NOTE | 2016-08-14 12:49 | NUR ---
PATIENT IS SEEN BY DR. LINARES TODAY, ORDERED TO APPLY XEROFORM DRESSING TO LEFT HEEL AND COVER WITH ABD PAD THEN KERLIX TO RIGHT HEEL PRIOR PATIENT DC TO REHAB NOTED AND ACKNOWLEDGED. Addendum: 08/14/16 at 1321 by BETH LIM RN CLARIFICATION NOTES ABOVE. APPLY XEROFORM DRESSING TO RIGHT HEEL.
--- NOTE | 2016-08-14 13:00 | NUR ---
HYDROGEL NON ADMINISTERED, WOUND VAC IN PLACE. DR. LINARES IS AWARE, PER MD APPLY XEROFORM DRESSING TO RIGHT HEEL VOER WITH ABD PAD, NO WOUND VAC PRIOR DC.
--- NOTE | 2016-08-14 13:46 | NUR ---
PATIENT TO BE DISCHARGED TO SNF ORDERED.
--- NOTE | 2016-08-14 14:16 | NUR ---
DEPAKOTE PO NON ADMINISTERED, ATTEMPTED 2X. PATIENT SPIT OUT MEDICATION.
[2016-08-14 16:00] VITALS: BP 121/46
--- NOTE | 2016-08-14 16:30 | NUR ---
MS RN DISCHARGED PATIENT HAS BEEN CLEARED FOR DISCHARGE TO SNF BY . V/S REMAINS STABLE, AFEBRILE. NO SOB. WOUND VAC REMOVED, XEROFORM DRESSING APPLIED TO RIGHT HEEL THEN COVERED WITH ABD PAD, WRAP WITH KERLIX. KATTY MIDLINE REMOVED, GAUZE APPLIED, NO BLEEDING NOTED. PATIENT HAD BOWEL MOVEMENT TODAY, DULCOLAX SUPP TN EFFECTIVE. CALLED [facility], SPOKE TO SHANNA FOR REPORT. NOTIFIED DAUGHTER-CODY PRIOR DC. PATIENT LEFT HOSP IN STABLE CONDITION VIA AMBULANCE.
== END 2016-08-14 16:40 | DRG 264 ==
LOC: ER 13:51 → ICU 16:48 → TELE-TD 08-04 21:25 → TELE1 08-04 21:42 → MEDSG1 08-05 18:44 → TELE1 08-09 13:53 → MEDSG1 08-10 15:47 → MEDSG2 08-13 05:11
PROVIDERS: ADMIT Internal Medicine; ATTEND Internal Medicine
PROC: 05H533Z Insertion of Infusion Device into Right Subclavian Vein, Percutaneous Approach (ICD-10-PCS; 2016-08-06)
PROC: 0JBQ0ZZ Excision of Right Foot Subcutaneous Tissue and Fascia, Open Approach (ICD-10-PCS; principal; 2016-08-07 11:41)
DX: E11.52 Type 2 diabetes mellitus with diabetic peripheral angiopathy with gangrene (principal); J96.00 Acute respiratory failure, unspecified whether with hypoxia or hypercapnia; J69.0 Pneumonitis due to inhalation of food and vomit; G93.41 Metabolic encephalopathy; L89.614 Pressure ulcer of right heel, stage 4; N17.0 Acute kidney failure with tubular necrosis; E87.2 Acidosis; I13.0 Hypertensive heart and chronic kidney disease with heart failure and stage 1 through stage 4 chronic kidney disease, or unspecified chronic kidney disease; I50.32 Chronic diastolic (congestive) heart failure; D62 Acute posthemorrhagic anemia; N39.0 Urinary tract infection, site not specified; L97.419 Non-pressure chronic ulcer of right heel and midfoot with unspecified severity; F03.91 Unspecified dementia, unspecified severity, with behavioral disturbance; I70.261 Atherosclerosis of native arteries of extremities with gangrene, right leg; E11.621 Type 2 diabetes mellitus with foot ulcer; E86.0 Dehydration; E11.22 Type 2 diabetes mellitus with diabetic chronic kidney disease; D50.9 Iron deficiency anemia, unspecified; D63.8 Anemia in other chronic diseases classified elsewhere; E66.01 Morbid (severe) obesity due to excess calories; L89.151 Pressure ulcer of sacral region, stage 1; N18.3 Chronic kidney disease, stage 3 (moderate); Z79.899 Other long term (current) drug therapy; I25.10 Atherosclerotic heart disease of native coronary artery without angina pectoris; E87.5 Hyperkalemia; F29 Unspecified psychosis not due to a substance or known physiological condition; E11.51 Type 2 diabetes mellitus with diabetic peripheral angiopathy without gangrene; Z68.33 Body mass index [BMI] 33.0-33.9, adult; D50.0 Iron deficiency anemia secondary to blood loss (chronic); L53.8 Other specified erythematous conditions; B96.4 Proteus (mirabilis) (morganii) as the cause of diseases classified elsewhere; I70.201 Unspecified atherosclerosis of native arteries of extremities, right leg; K52.9 Noninfective gastroenteritis and colitis, unspecified; F32.9 Major depressive disorder, single episode, unspecified
CPT/HCPCS: 36415; 36569; 71010-TC; 73650-TC; 76700-TC; 80048-TC; 80053-TC; 80061-TC; 80076-TC; 80164-TC; 80202-TC; 81000-TC; 82088; 82553-TC; 82746; 82947-TC; 82962-TC; 83540-TC; 83605-TC; 83690-TC; 83735-TC; 84100-TC; 84132-TC; 84244; 84443-TC; 85025-TC; 85045-TC; 85652-TC; 85730-TC; 87040-TC; 87070-TC; 87081-TC; 87086-TC; 87186-TC; 92611-TC; 93307-TC; 93925-TC; 94799-TC; 97001-TC; A4216; A4217; A4606; A6209; A6248; A6253; A6402; J0610; J0696; J1815; J1940; J1956; J2060; J2185; J2405; J2543; J2916; J3370; J3475; J3480; J3490; J7030; J7040; J7042; J7050; J7060; Z7610

== ENCOUNTER 2018-06-18 09:38 | Inpatient (IN) | payer MEDICARE, OTHER ==
[~2018-06-18] VITALS: Ht 162.6 cm; Wt 75.7 kg
[~2018-06-18 09:38] MED LIST changes: +ACET325T53 PO; +ASCO500T10 PO; +CLON0.5T12 PO; -CLON0.5T4 PO; +CLOP75TA15 PO; -CLOP75TA2 PO; +DEXT1CAP3 PO; -HYDR-3326 PO; +HYDR-3974 PO; +INSU100V11 SQ; -INSU100V3 SQ; +LUBI8CAP PO; -MAG30ORA PO; +METO-295 PO; +MINE133E RC; -ONDA4TAB5 PO; -POLY17PO4 PO; -RISP0.2515 PO; -VALS160T24 PO; +VALS160T29 PO; -VENL150C2 PO; +VENL75CA62 PO; -ZOLP5TAB2 PO
[2018-06-18 10:21] LABS: BASOPHILS % (AUTO) 0.2 % (0.0-2.0); EOSINOPHILS % (AUTO) 1.4 % (0.0-6.0); HEMATOCRIT 38 % (33-45); HEMOGLOBIN 12.2 g/dL (11.5-14.8); LYMPHOCYTES # (AUTO) 4.2 /CMM (0.8-4.8); LYMPHOCYTES % (AUTO) 28.7 % (20.0-44.0); MEAN CORPUSCULAR HGB CONC 32 g/dl (31.0-36.0); MEAN CORPUSCULAR VOLUME 89 fL (82-100); MONOCYTES # (AUTO) 0.8 /CMM (0.1-1.30); MONOCYTES % (AUTO) 5.3 % (2.0-12.0); NEUTROPHILS # (AUTO) 9.5 /CMM (1.8-8.9); NEUTROPHILS % (AUTO) 64.4 % (43.0-81.0); PLATELET COUNT (AUTO) 259 /CMM (150-450); RED BLOOD CELL COUNT(AUTO) 4.25 MIL/uL (4.0-5.2); WHITE BLOOD COUNT (AUTO) 14.8 K/uL (4.3-11.0)
[2018-06-18 10:30] LABS: APPEARANCE,URINE Cloudy (CLEAR); BILIRUBIN,URINE Negative (NEGATIVE); BLOOD, URINE Small Ery/uL (NEGATIVE); COLOR,URINE Other (YELLOW); KETONES,URINE Negative (NEGATIVE); LEUKOCYTE ESTERASE ,URINE Large (NEGATIVE); NITRITE, URINE Positive (NEGATIVE); PH,URINE 6.5 (5.0-8.0); PROTEIN,URINE 30 mg/dl (NEGATIVE); UGLUCOSE Negative (NEGATIVE)
[2018-06-18 10:34] LABS: CALCIUM, SERUM 9.6 mg/dL (8.5-10.1); CARBON DIOXIDE 33 mmol/L (21-32); CHLORIDE 100 mmol/L (98-107); CREATININE 1.6 mg/dL (0.6-1.3); GLUCOSE 97 mg/dL (74-106); POTASSIUM 4.8 mmol/L (3.5-5.1); SODIUM SERUM 134 mmol/L (136-145); UREA NITROGEN, BLOOD 47 mg/dL (7-18)
[2018-06-18 10:39] LABS: BACTERIA,URINE 1+ /HPF (None Seen); SQUAMOUS EPITHELIAL CELL,UR Few /HPF (None Seen); WBC,URINE 21-50 /HPF (0-3)
[2018-06-18 10:48] LABS: ALANINE AMINOTRANSFERASE 27 U/L (12-78); ALBUMIN 2.8 g/dL (3.4-5.0); ALKALINE PHOSPHATASE 36 U/L (46-116); ASPARTATE AMINOTRANSFERASE 43 U/L (15-37); BILIRUBIN,DIRECT 0.2 mg/dL (0.0-0.2); BILIRUBIN,TOTAL 0.5 mg/dL (0.2-1.0); TOTAL PROTEIN, SERUM 6.7 g/dL (6.4-8.2)
[2018-06-18] MEDS ORDERED: CEFTRIAXONE 2 G in IV D5W 100 ML IV ONE (11:30)
[2018-06-18] MEDS ORDERED: CEFTRIAXONE 1GM BAG (ER ONLY) 1 GM/50 ML PIGGYBACK IV ONE (11:30)
[2018-06-18] MEDS ORDERED: APIX5TAB PO (11:41)
[2018-06-18] MEDS ORDERED: OMEG1CAP55 PO (11:41)
[2018-06-18] MEDS ORDERED: LINA145C PO (11:41)
[2018-06-18] MEDS ORDERED: FENO200C PO (11:41)
[2018-06-18] MEDS ORDERED: MIRT15TA PO (11:41)
[2018-06-18] MEDS ORDERED: INSU100V30 SQ ×4 (11:41)
[2018-06-18] MEDS ORDERED: FURO20TA4 PO (11:41)
[2018-06-18] MEDS ORDERED: LORA-258 PO (11:41)
[2018-06-18] MEDS ORDERED: MULT-213 PO (11:41)
[2018-06-18] MEDS ORDERED: DEXT15DR6 EACHEYE (11:41)
[2018-06-18 12:00] VITALS: BP 101/50
[2018-06-18] MEDS ORDERED: ACETAMINOPHEN 325 MG TABLET PO SCH (13:30)
[2018-06-18] MEDS ORDERED: INSULIN REGULAR, HUMAN 100 UNIT/ML 3 ML VIAL SQ PRN ×2 (13:30)
[2018-06-18] MEDS ORDERED: ACETAMINOPHEN 325 MG TABLET PO PRN ×2 (13:30)
[2018-06-18] MEDS ORDERED: HYDROCODONE/APAP 5/325MG 1 EACH TABLET PO PRN (13:30)
[2018-06-18] MEDS ORDERED: ZOLPIDEM TARTRATE 5 MG TABLET PO PRN (13:30)
[2018-06-18] MEDS ORDERED: CEFEPIME 2 GM in IV D5W 100 ML IV SCH (13:30)
[2018-06-18] MEDS ORDERED: MAG HYDROX/AL HYDROX/SIMETH 30 ML UDC PO PRN (13:30)
[2018-06-18] MEDS ORDERED: ONDANSETRON HCL/PF 4 MG/2 ML VIAL IVP PRN (13:30)
[2018-06-18] MEDS ORDERED: DEXTROSE 50%-WATER 50 ML DISP.SYRIN IV PRN (13:30)
[2018-06-18] MEDS ORDERED: Z GUARD REMEDY 2 OZ OINT TP PRN (13:30)
[2018-06-18] MEDS ORDERED: *INSULIN REGULAR(HUMULIN R)HUM 100 UNIT/ML VIAL SQ PRN (13:30)
[2018-06-18] MEDS ORDERED: MAGNESIUM HYDROXIDE 30 ML UDC PO PRN (13:30)
[2018-06-18] MEDS ORDERED: FEE PK DOSING 1 MIN EA MC ONE (15:15)
[2018-06-18] MEDS: VANCOMYCIN 1 GM in IV D5W 250 ML IV SCH (15:30)
[2018-06-18 16:00] VITALS: BP 115/67
[2018-06-18] MEDS: CEFEPIME 2 GM in IV D5W 100 ML IV SCH (16:38)
[2018-06-18] MEDS: CLOPIDOGREL BISULFATE 75 MG TABLET PO SCH (16:41)
[2018-06-18] MEDS: SENNOSIDES 8.6 MG TABLET PO SCH (16:41)
[2018-06-18] MEDS: APIXABAN 5 MG TABLET PO SCH (16:41)
[2018-06-18] MEDS ORDERED: OMEGA ACID ETHYL ESTERS PO SCH (17:00)
[2018-06-18] MEDS: POLYVINYL ALCOHOL 15 ML BOTTLE EACHEYE SCH (17:00)
[2018-06-18] MEDS: BLOOD SUGAR DIAGNOSTIC 1 EACH STRIP VI SCH ×2 (17:03→21:33)
[2018-06-18] MEDS: IV NS 0.9% 1,000 ML IV PRN (17:31)
[2018-06-18] MEDS: INSULIN REGULAR, HUMAN 100 UNIT/ML 3 ML VIAL SQ SCH (17:35)
[2018-06-18 20:00] VITALS: BP 119/60
[2018-06-18] MEDS: MIRTAZAPINE 15 MG TABLET PO SCH (21:23)
[2018-06-18] MEDS: LORAZEPAM 0.5 MG TABLET PO SCH (21:23)
[2018-06-18] MEDS: INSULIN GLARGINE, 100 UNIT/ML CARTRIDGE SQ SCH (21:37)
[2018-06-19] MEDS ORDERED: LORAZEPAM INJ 2 MG/ML VIAL IV ONE (00:30)
[2018-06-19] MEDS: BLOOD SUGAR DIAGNOSTIC 1 EACH STRIP VI SCH ×4 (07:03→21:45)
[2018-06-19] MEDS: INSULIN REGULAR, HUMAN 100 UNIT/ML 3 ML VIAL SQ SCH ×2 (07:30→18:36)
[2018-06-19] MEDS: CLOPIDOGREL BISULFATE 75 MG TABLET PO SCH (08:43)
[2018-06-19] MEDS: SENNOSIDES 8.6 MG TABLET PO SCH ×2 (08:43→16:45)
[2018-06-19 08:53] LABS: ABG BASE EXCESS 3.9 mmol/L; ABG OXYGEN SATURATION 94.2 % (92.0-98.5); ABG PH 7.432 (7.350-7.450); ABG PO2 71.8 mmHg (75.0-100.0); AaDO2 25.2 mmHg; COHb 0.5 % (0.5-1.5); MetHb 0.5 % (0.0-1.5); O2Hb 93.3 % (94.0-97.0); SITE, ABG Right Radial; VENT MODE, BG ROOM AIR
[2018-06-19 09:00] VITALS: BP 112/59
[2018-06-19] MEDS: INSULIN GLARGINE, 100 UNIT/ML CARTRIDGE SQ SCH ×2 (09:00→21:58)
[2018-06-19] MEDS ORDERED: Linaclotide (Linzess) 145 MCG PO SCH (09:00)
[2018-06-19] MEDS: POLYVINYL ALCOHOL 15 ML BOTTLE EACHEYE SCH ×2 (12:56→16:45)
[2018-06-19] MEDS: LACTOBACILLUS RHAMNOSUS GG 1 EACH CAP.SPRINK PO SCH ×2 (12:57→16:45)
[2018-06-19] MEDS: MULTIVIT W/MINERALS 1 TAB TABLET PO SCH (12:57)
[2018-06-19] MEDS ORDERED: INSULIN REGULAR, HUMAN 100 UNIT/ML 3 ML VIAL SQ SCH (13:00)
[2018-06-19] MEDS: APIXABAN 5 MG TABLET PO SCH ×2 (13:41→18:23)
[2018-06-19 15:20] LABS: BASOPHILS % (AUTO) 0.4 % (0.0-2.0); EOSINOPHILS % (AUTO) 4.8 % (0.0-6.0); HEMATOCRIT 34 % (33-45); HEMOGLOBIN 11.2 g/dL (11.5-14.8); LYMPHOCYTES # (AUTO) 3.5 /CMM (0.8-4.8); LYMPHOCYTES % (AUTO) 38.5 % (20.0-44.0); MEAN CORPUSCULAR HGB CONC 33 g/dl (31.0-36.0); MEAN CORPUSCULAR VOLUME 88 fL (82-100); MONOCYTES # (AUTO) 0.5 /CMM (0.1-1.30); MONOCYTES % (AUTO) 5.8 % (2.0-12.0); NEUTROPHILS # (AUTO) 4.6 /CMM (1.8-8.9); NEUTROPHILS % (AUTO) 50.5 % (43.0-81.0); PLATELET COUNT (AUTO) 205 /CMM (150-450); RED BLOOD CELL COUNT(AUTO) 3.87 MIL/uL (4.0-5.2); WHITE BLOOD COUNT (AUTO) 9.2 K/uL (4.3-11.0)
[2018-06-19 15:40] LABS: ALANINE AMINOTRANSFERASE 27 U/L (12-78); ALBUMIN 2.4 g/dL (3.4-5.0); ALKALINE PHOSPHATASE 37 U/L (46-116); ASPARTATE AMINOTRANSFERASE 40 U/L (15-37); BILIRUBIN,TOTAL 0.3 mg/dL (0.2-1.0); CARBON DIOXIDE 29 mmol/L (21-32); CHLORIDE 106 mmol/L (98-107); CREATININE 1.4 mg/dL (0.6-1.3); GLUCOSE 164 mg/dL (74-106); MAGNESIUM 1.9 mg/dL (1.8-2.4); PHOSPHORUS 3.1 mg/dL (2.5-4.9); POTASSIUM 3.6 mmol/L (3.5-5.1); SODIUM SERUM 144 mmol/L (136-145); TOTAL PROTEIN, SERUM 5.8 g/dL (6.4-8.2); UREA NITROGEN, BLOOD 34 mg/dL (7-18)
[2018-06-19 15:42] LABS: CHOLESTEROL 112 mg/dL (<200); HDL CHOLESTEROL 35 mg/dL (40-60); LDL 58 mg/dL (0-99); TRIGLYCERIDES 128 mg/dL (30-150)
[2018-06-19] MEDS: CEFEPIME 2 GM in IV D5W 100 ML IV SCH (16:32)
[2018-06-19 20:00] VITALS: BP 125/71
[2018-06-19] MEDS: MIRTAZAPINE 15 MG TABLET PO SCH (20:23)
[2018-06-19] MEDS: LORAZEPAM 0.5 MG TABLET PO SCH (20:23)
[2018-06-19 20:50] VITALS: BP 125/71
[2018-06-19] MEDS ORDERED: ATORVASTATIN 40 MG TABLET PO SCH (22:00)
[2018-06-19] MEDS ORDERED: FENOFIBRATE NANOCRYS (145 MG) 145 MG TABLET PO SCH (22:00)
[2018-06-19] MEDS ORDERED: LORAZEPAM 0.5 MG TABLET PO SCH (22:00)
[2018-06-20] MEDS: IV NS 0.9% 1,000 ML IV PRN (02:29)
[2018-06-20] MEDS: VANCOMYCIN 1 GM in IV D5W 250 ML IV SCH (02:29)
[2018-06-20] MEDS: BLOOD SUGAR DIAGNOSTIC 1 EACH STRIP VI SCH ×2 (05:30→11:52)
[2018-06-20] MEDS: SENNOSIDES 8.6 MG TABLET PO SCH (05:32)
[2018-06-20] MEDS: INSULIN REGULAR, HUMAN 100 UNIT/ML 3 ML VIAL SQ SCH (07:30)
[2018-06-20 08:00] VITALS: BP 103/51
[2018-06-20] MEDS: LACTOBACILLUS RHAMNOSUS GG 1 EACH CAP.SPRINK PO SCH (08:48)
[2018-06-20] MEDS: CLOPIDOGREL BISULFATE 75 MG TABLET PO SCH (08:48)
[2018-06-20] MEDS: MULTIVIT W/MINERALS 1 TAB TABLET PO SCH (08:48)
[2018-06-20 08:49] LABS: CALCIUM, SERUM 8.9 mg/dL (8.5-10.1); CARBON DIOXIDE 28 mmol/L (21-32); CHLORIDE 105 mmol/L (98-107); CREATININE 1.2 mg/dL (0.6-1.3); GLUCOSE 98 mg/dL (74-106); POTASSIUM 4.1 mmol/L (3.5-5.1); SODIUM SERUM 141 mmol/L (136-145); UREA NITROGEN, BLOOD 28 mg/dL (7-18)
[2018-06-20] MEDS: APIXABAN 5 MG TABLET PO SCH (08:50)
[2018-06-20] MEDS: POLYVINYL ALCOHOL 15 ML BOTTLE EACHEYE SCH (08:57)
[2018-06-20] MEDS: INSULIN GLARGINE, 100 UNIT/ML CARTRIDGE SQ SCH (09:00)
== END 2018-06-20 14:30 | DRG 177 ==
LOC: ER 09:39 → TELE 11:36 → MED 12:39
PROVIDERS: ADMIT Internal Medicine; ATTEND Internal Medicine
PROC: 05H633Z Insertion of Infusion Device into Left Subclavian Vein, Percutaneous Approach (ICD-10-PCS; principal; 2018-06-18)
PROC: B547ZZA Ultrasonography of Left Subclavian Vein, Guidance (ICD-10-PCS; 2018-06-18)
DX: J15.6 Pneumonia due to other Gram-negative bacteria (principal); G93.41 Metabolic encephalopathy; N17.0 Acute kidney failure with tubular necrosis; R53.2 Functional quadriplegia; E87.1 Hypo-osmolality and hyponatremia; I13.0 Hypertensive heart and chronic kidney disease with heart failure and stage 1 through stage 4 chronic kidney disease, or unspecified chronic kidney disease; N39.0 Urinary tract infection, site not specified; J69.0 Pneumonitis due to inhalation of food and vomit; E11.22 Type 2 diabetes mellitus with diabetic chronic kidney disease; E86.0 Dehydration; I50.9 Heart failure, unspecified; N18.9 Chronic kidney disease, unspecified; L89.620 Pressure ulcer of left heel, unstageable; L89.610 Pressure ulcer of right heel, unstageable; M24.561 Contracture, right knee; F03.90 Unspecified dementia, unspecified severity, without behavioral disturbance, psychotic disturbance, mood disturbance, and anxiety; Z86.718 Personal history of other venous thrombosis and embolism; E86.1 Hypovolemia; I25.10 Atherosclerotic heart disease of native coronary artery without angina pectoris; R62.7 Adult failure to thrive; Z79.01 Long term (current) use of anticoagulants; Z79.02 Long term (current) use of antithrombotics/antiplatelets; Z79.899 Other long term (current) drug therapy; Z90.49 Acquired absence of other specified parts of digestive tract; Z79.4 Long term (current) use of insulin
CPT/HCPCS: 36415; 36569; 36600; 70490-TC; 71045-TC; 71250-TC; 78306-TC; 80048-TC; 80053-TC; 80061-TC; 80076-TC; 81000-TC; 82962-TC; 83605-TC; 83735-TC; 84100-TC; 84484-TC; 85025-TC; 85730-TC; 87040-TC; 87081-TC; 87086-TC; 87186-TC; 94799-TC; A9503; G0378; J0692; J0696; J1815; J2060; J3370; J7030; J7050; J7060